=== PATIENT | female | born 1955 | race Caucasian/White ===

== ENCOUNTER 2018-09-21 08:20 | Outpatient (RCR) | payer SELFPAY | END 2018-10-03 23:59 | LOC: WC 08:20 | PROVIDERS: Family Provider Internal Medicine; PCP Internal Medicine; Visit Provider Internal Medicine | DX: Z09 Encounter for follow-up examination after completed treatment for conditions other than malignant neoplasm (principal) ==

== ENCOUNTER → 2019-09-21 13:32 | Outpatient (CLI) | payer SELFPAY ==
[2015-06-21 21:39] VITALS: BMI 34.9
--- NOTE | 2019-09-21 | CER_PTH ---
PATIENT: NAOMIE GOMEZ LOC: [facility] U#:[id number] AGE/SX: 70/F ROOM: RE09/21/[address]: Dr. Rusty Schroeder MD : [id number] BED: DIS: SPEC #: [id number] RECD: 09/21/19 14:07 STATUS: DAJA RAKESH #: [id number] CHANG: 09/21/19 00:[address]: Rusty Schroeder DEPT: SURGICAL PATHOLOGY RECD BY: George Meyer ENTERED: 09/22/19 09:13 SP TYPE: CERV OTHR DR: Dr. Rachell Weaver MD Tissues: Uterine cervix, NOS Procedures: Surgery Specimen Level IV HEADER OPERATION: Cervical biopsy PRE-OP DIAGNOSIS: Nabothian cyst TISSUE SUBMITTED: Cervical biopsy MICROSCOPIC DIAGNOSIS Cervix, biopsy: Fragments of benign ecto- and endocervical epithelium and mucoid material, clinically nabothian cyst. SJ:devika 09/22/19 MICROSCOPIC DESCRIPTION Slides are reviewed. GROSS DESCRIPTION Received in fixative is one container labeled with the patient's name and designated biopsy. The specimen consists of multiple irregular fragments of bowens mucoid tissue that in aggregate measure 2.5 x 2.5 x 0.3 cm. The specimen is totally submitted in one cassette. / SJ:rg 09/21/19 TC:5 CPT: 82311
[2019-09-25 12:52] LABS: HPV Reflexed? NOT INDICATED
== END ==
PROVIDERS: Family Provider Internal Medicine; PCP Internal Medicine; Referring Provider Obstetrics & Gynecology; Visit Provider Obstetrics & Gynecology
DX: Z12.4 Encounter for screening for malignant neoplasm of cervix (principal); N88.8 Other specified noninflammatory disorders of cervix uteri
CPT/HCPCS: 88175; 88305; G0145

== ENCOUNTER 2022-06-03 08:45 | Outpatient (RCR) | payer MEDICARE, SELFPAY ==
[2022-05-27 09:01] VITALS: BP 152/87; PULSE 75; TEMP 35.6
--- NOTE | 2022-05-27 10:11 | HP.PCM_ITS ---
History of Present Illness Date of Service: 05/27/22 Chief Complaint: Follow-up posterior right and left calf area. She also wants me look at her left lateral face. 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 She complains that she has open sores on the left lateral high cheekbone down in a keeps moving down towards the jaw. She is currently on cephalexin by her family doctor that seems to be clearing it up. Can see the outline of where it was on her face and she has 1 small open area that is superficial. The right posterior leg looks more like a insect bite with some depth and some erythema around the edge. She states that its been going on for over a month not healing well. The left leg cluster has several open areas that are very superficial and almost crusted over. Patient states she just got over a bad case of cellulitis that happens every couple of months. She states she wears compression stockings regularly but still gets the cellulitis. This last time she was hospitalized for 4 days for her cellulitis. Patient would like to get a total knee replacement with Dr. Dobbs her orthopedic surgeon wants this figured out why she keeps breaking down on her lower legs and he referred her to us. [facility] Medical History (Updated 05/27/22 @ 10:38 by Wendy Hoover NP, MOTH EXTERMINATOR-C) Diabetes type 2, controlled Home Medications hydrocodone-acetaminophen 5-325mg 5mg-325mg 1 - 2 tab PO Q4H PRN PRN Pain ##12 06/22/15 [Rx Last Taken Unknown] penicillin V potassium 500 mg tablet 500 mg PO 4X/DAY ##40 06/22/15 [Rx Last Taken Unknown] Allergy/AdvReac Type Severity Reaction Status Date / Time No Known Allergies Allergy Verified 06/21/15 21:42 Social History Smoking Status: Never smoker ROS Integumentary Integumentary: Reports non-healing lesions and sores Vital Signs Vital Signs Vital Signs: 05/27/22 09:01 Temperature 96.1 F L Temperature Source Temporal Pulse Rate 75 Blood Pressure 152/87 H Blood Pressure Mean 108 Blood Pressure Source Monitor Blood Pressure Position Semi-Fowlers Blood Pressure Location Right Arm Physical Exam Const oriented x3 General Appearance: cooperative Exam Limitations: no limitations HEENT Nose: external nose normal External Ear: external ears normal Mouth: oral and palatal mucosa normal Eyes PERRL General Eye: normal appearance of both eyes Neck full ROM General: normal visual inspection Resp normal respiratory effort Effort and Inspection: able to speak in complete sentences Auscultation: clear to auscultation bilaterally Cardio regular rate and regular rhythm Palpation: normal PMI Rate: regular rate Rhythm: regular rhythm GI Auscultation: normoactive bowel sounds Palpation: soft and no hepatosplenomegaly external exam normal Back/Spine Cervical Spine: cervical ROM normal Thoracic Spine / Upper Back: normal to inspection Lumbar Spine / Lower Back: normal to inspection Extremity normal to inspection General Extremity: normal exam except as noted Skin no rashes or lesions noted Skin Narrative: Superficial cluster of open sores on the left posterior calf. Right posterior calf has more of a hole such from a possible insect bite or spider bite. Lesion on her face open superficial closer to her jaw. Can see the outline of her infected skin previously Neuro oriented x3 Psych Appearance: grossly normal Speech: normal speech Thought Content: normal thought content Judgement: judgement good Debridement Note Debridement Note Wound debrided: Left posterior cluster nonhealing wounds possibly venous in nature Laterality: Left Type of Debridement: Excisional debridement Anesthesia Used: 5% Lidocaine Gel Depth: Down to and including healthy tissue Percentage of wound debrided: 100 Instrument Used: 3mm curette Tissue Removed: Fibrin Severity: Limited To Skin Breakdown Amount of bleeding with debridement: None Bleeding Controlled with: Compression and gauze Patient tolerated procedure: Patient tolerated procedure well Post-Debridement Measurements and Additional Note: Post-Debridement Measurements/Treatment - Nurse 1 - General Ulcer Assessment Start: 05/27/22 08:59 Freq: Status: Active Protocol: RAS Activity Type Activity Date Activity User E-sign Co-sign Detail Recorded Client Recorded Date Recorded By Document 05/27/22 09:01 RIGOBERTO [id number] 05/27/22 09:13 RIGOBERTO 05/27/22 09:01 - Today's Visit Information Type of service Initial Visit Arrival Mode Ambulatory,Cane Patient Identification Verified (Name & Yes ) Vital Signs Temperature (97.8 F-99.1 F) 96.1 F L Temperature Source Temporal Pulse Rate (60-100) 75 Pulse Location Monitor Blood Pressure (90/60-120/80) 152/87 H Blood Pressure Mean 108 Source Monitor Position Semi-Fowlers Blood Pressure Location Right Arm History Since Last Visit- (Skip if this is Patient's initial visit) Have you changed medications since your No last visit? Any new allergies or adverse reactions No Had a fall/change in ADL's that may No increase risk of falls Signs or symptoms of abuse and/or No neglect since last visit Have you been in the hospital since your No last visit? Has dressing in place as prescribed Yes Has compression in place as prescribed N/A Has offloadiing in place as prescribed N/A Experienced any changes in pain level or No management Left Footwear Regular Shoe Right Footwear Regular Shoe Pain Scale: 0-10 Numeric Is Patient Pain Free? Yes WC - Nurse 1 - General Ulcer Measurement Start: 05/27/22 08:59 Freq: Status: Active Protocol: Activity Type Activity Date Activity User E-sign Co-sign Detail Recorded Client Recorded Date Recorded By Document 05/27/22 09:01 RIGOBERTO [id number] 05/27/22 09:13 RIGOBERTO 05/27/22 09:01 Wound Center Nurse 1 #2 Left posterior leg -Current Size (cm) - Length 6 -Current Size (cm) - Width 4 -Current Size (cm) - Depth 0.1 -Total Square Cm 24 -Exudate Amt Small -Exudate Type Serosanguineous -Wound Margin Distinct, Outline Attached -Granulation Amt Large (67-100%) -Granulation Quality Red -Necrosis Amt None Present (0 %) -Texture (Neema-wound Skin Appearance) Assessed, Scarring -Moisture (Neema-wound Skin Appearance) No Abnormality, Assessed -Color (Neema-wound Skin Appearance) No Abnormality, Assessed -Temperature (Neema-wound Skin No Abnormality Appearance) (Pt Warm) -Tenderness on Palpation (Neema-wound No Skin Appearance) -Ulcer Cleansing Rinsed/ Irrigated with Saline -Foul Odor after Cleansing No -Anesthetic Used 5% Lidocaine Gel #1 Right Post leg -Current Size (cm) - Length 0.4 -Current Size (cm) - Width 0.4 -Current Size (cm) - Depth 0.1 -Total Square Cm 0.16 -Exudate Amt Small -Exudate Type Serosanguineous -Wound Margin Distinct, Outline Attached -Granulation Amt Medium (34-66%) -Granulation Quality Red -Necrosis Amt None Present (0 %) -Texture (Neema-wound Skin Appearance) Assessed, Scarring -Moisture (Neema-wound Skin Appearance) No Abnormality, Assessed -Color (Neema-wound Skin Appearance) No Abnormality, Assessed -Temperature (Neema-wound Skin No Abnormality Appearance) (Pt Warm) -Tenderness on Palpation (Neema-wound No Skin Appearance) -Ulcer Cleansing Rinsed/ Irrigated with Saline -Foul Odor after Cleansing No -Anesthetic Used 5% Lidocaine Gel Right Calf (cm) 38.5 Right Ankle (cm) 24 Left Calf (cm) 39.8 Left Ankle (cm) 23 WC - Nurse 2 - General Ulcer CM Notes Start: 05/27/22 08:59 Freq: Status: Active Protocol: Activity Type Activity Date Activity User E-sign Co-sign Detail Recorded Client Recorded Date Recorded By Document 05/27/22 09:20 MW [id number] 05/27/22 09:28 MW 05/27/22 09:20 Wound Center Nurse 2 #2 Left posterior leg -Time 09:21 -Correct Patient Yes -Correct Side, Site, Position Yes -Correct Procedure Yes -Procedure Performed Yes -Type of Procedure Debridement -Clinical Debridement Subcutaneous -Tissue Removed Subcutaneous -Post Debridement (cm) - Length 6.0 -Post Debridement (cm) - Width 4.5 -Post Debridement (cm) - Depth 0.1 -Total Square (Post) (cm) 27.00 -Area of Debridement (cm) - Length 6.0 -Area of Debridement (cm) - Width 4.5 -Total Square (Area) (cm) 27.00 -Tunneling No -Undermining/Tunneling No -Circular Undermining No -Wound/Ulcer Outcome Not Healed -Ulcer Cleansing Rinsed/ Irrigated with Saline -Foul Odor after Cleansing No -Bioengineered Tissue No -Bleeding Controlled with Pressure -Treatment Response Procedure Tolerated Well -Offloading No -Debridement - Subq, 1st 20sq cm Yes -Debridement, SubQ, ea addt'l 20sq cm 1 or part thereof #1 Right Post leg -Time 09:21 -Correct Patient Yes -Correct Side, Site, Position Yes -Correct Procedure Yes -Procedure Performed Yes -Type of Procedure Debridement -Clinical Debridement Subcutaneous -Tissue Removed Subcutaneous -Post Debridement (cm) - Length 0.7 -Post Debridement (cm) - Width 0.4 -Post Debridement (cm) - Depth 0.2 -Total Square (Post) (cm) 0.28 -Area of Debridement (cm) - Length 0.7 -Area of Debridement (cm) - Width 0.4 -Total Square (Area) (cm) 0.28 -Tunneling No -Undermining/Tunneling No -Circular Undermining No -Wound/Ulcer Outcome Not Healed -Ulcer Cleansing Rinsed/ Irrigated with Saline -Foul Odor after Cleansing No -Bioengineered Tissue No -Bleeding Controlled with Pressure -Treatment Response Procedure Tolerated Well -Offloading No -Debridement - Subq, 1st 20sq cm No Pain Scale: 0-10 Numeric Is Patient Pain Free? Yes - Nurse 3 - General Ulcer D/C NN Start: 05/27/22 08:59 Freq: Status: Active Protocol: Activity Type Activity Date Activity User E-sign Co-sign Detail Recorded Client Recorded Date Recorded By Document 05/27/22 09:37 [id number] 05/27/22 09:38 TRENT 05/27/22 09:37 Wound Care Nurse 3 #2 Left posterior leg -Primary Dressing Applied Aquacel AG 4x4, NonAdherent Contact Layer -Primary Dressing Covered/Secured with Dry Gauze,Dry Gauze & Roll Gauze,Secured with Tape -Aquacel AG 4x4 1 #1 Right Post leg -Primary Dressing Covered/Secured with Dry Gauze, Secured with Tape Pain Scale: 0-10 Numeric Is Patient Pain Free? Yes - Visit Discharge Discharge Condition Stable Ambulatory Status Ambulatory,Cane Transportation Private Auto Additional Wound Wound debrided: Right posterior calf from possibly a insect or spider bite Laterality: Right Type of Debridement: Excisional debridement Anesthesia Used: 5% Lidocaine Gel Depth: in the subcutaneous layer Percentage of wound debrided: 100 Instrument Used: 3mm curette Tissue Removed: Fibrin and devitalized tissue Severity: Fat Layer Exposed Amount of bleeding with debridement: Mild Bleeding Controlled with: Compression and gauze Patient tolerated procedure: Patient tolerated procedure well Assessment/Plan Assessment/Plan (1) Infected insect bite of lower extremity: CODE(S): S80.869A - Insect bite (nonvenomous), unspecified lower leg, initial encounter; L08.9 - Local infection of the skin and subcutaneous tissue, unspecified; W57.XXXA - Bitten or stung by nonvenomous insect and other nonvenomous arthropods, initial encounter (2) Venous insufficiency of both lower extremities: CODE(S): I87.2 - Venous insufficiency (chronic) (peripheral) PLAN: Wash areas on both legs with antibacterial soap apply Aquacel extra to all areas cover with Adaptic and gauze and tape every day Finish antibiotic therapy with the cephalexin Follow-up in 1 week
[2022-06-03 08:49] VITALS: BP 139/71; PULSE 75; RESP 16; TEMP 35.6
--- NOTE | 2022-06-03 11:10 | PCM.WC.PN ---
History of Present Illness Date of Service: 06/03/22 Chief Complaint: Follow-up posterior right and left calf area. She also wants me look at her left lateral face. 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 She complains that she has open sores on the left lateral high cheekbone down in a keeps moving down towards the jaw. She is currently on cephalexin by her family doctor that seems to be clearing it up. Can see the outline of where it was on her face and she has 1 small open area that is superficial. The right posterior leg looks more like a insect bite with some depth and some erythema around the edge. She states that its been going on for over a month not healing well. The left leg cluster has several open areas that are very superficial and almost crusted over. Patient states she just got over a bad case of cellulitis that happens every couple of months. She states she wears compression stockings regularly but still gets the cellulitis. This last time she was hospitalized for 4 days for her cellulitis. Patient would like to get a total knee replacement with Dr. Dobbs her orthopedic surgeon wants this figured out why she keeps breaking down on her lower legs and he referred her to us. Progress of Wound: The left cluster lower leg wounds are very superficial and should be healed within a week. No sign of infection or redness. Right posterior leg the depth is gone its more superficial now is healing very well again and should probably gone in another week or so Subjective Subjective Patient has been taking off her dressings at night and we have told her not to Objective Data Objective Data No sign of infection healing well we will continue with current treatment of Aquacel extra and Adaptic Vital Signs: Vital Signs Temp Pulse Resp BP O2 Del Method 96.1 F L 75 16 139/71 H Room Air 06/03/22 08:49 06/03/22 08:49 06/03/22 08:49 06/03/22 08:49 06/03/22 08:49 Oxygen Delivery Method Room Air Physical Exam Const oriented x3 General Appearance: cooperative Exam Limitations: no limitations HEENT Nose: external nose normal External Ear: external ears normal Mouth: oral and palatal mucosa normal Eyes PERRL General Eye: normal appearance of both eyes Neck full ROM General: normal visual inspection Resp normal respiratory effort Effort and Inspection: able to speak in complete sentences Auscultation: clear to auscultation bilaterally Cardio regular rate and regular rhythm Palpation: normal PMI Rate: regular rate Rhythm: regular rhythm GI Auscultation: normoactive bowel sounds Palpation: soft and no hepatosplenomegaly external exam normal Back/Spine Cervical Spine: cervical ROM normal Thoracic Spine / Upper Back: normal to inspection Lumbar Spine / Lower Back: normal to inspection Extremity normal to inspection General Extremity: normal exam except as noted Skin no rashes or lesions noted Skin Narrative: Superficial cluster of open sores on the left posterior calf. Right posterior calf has more of a hole such from a possible insect bite or spider bite. Lesion on her face open superficial closer to her jaw. Can see the outline of her infected skin previously Neuro oriented x3 Psych Appearance: grossly normal Speech: normal speech Thought Content: normal thought content Judgement: judgement good Debridement Note Debridement Note Wound debrided: Left posterior wounds lower extremity cluster Laterality: Left Type of Debridement: Excisional debridement Anesthesia Used: 5% Lidocaine Gel Depth: Down to and including healthy tissue Percentage of wound debrided: 100 Instrument Used: 5mm curette Tissue Removed: Fibrin Severity: Limited To Skin Breakdown Amount of bleeding with debridement: None Patient tolerated procedure: Patient tolerated procedure well Post-Debridement Measurements and Additional Note: Post-Debridement Measurements/Treatment - Nurse 1 - General Ulcer Assessment Start: 05/27/22 08:59 Freq: Status: Active Protocol: [email or web address].JOSET Activity Type Activity Date Activity User E-sign Co-sign Detail Recorded Client Recorded Date Recorded By Document 05/27/22 09:01 UT [id number] 05/27/22 09:13 UT Document 06/03/22 08:49 [facility] [id number] 06/03/22 08:52 [facility] 05/27/22 06/03/22 09:01 08:49 - Today's Visit Information Type of service Initial Visit Follow-up Visit (Physician/BROTHEL KEEPER ) Arrival Mode Ambulatory,Cane Ambulatory Transfer Assistance None Patient Identification Verified (Name & Yes Yes ) Patient Requires Transmission-Based No Precautions Vital Signs Temperature (97.8 F-99.1 F) 96.1 F L 96.1 F L Temperature Source Temporal Temporal Pulse Rate (60-100) 75 75 Pulse Location Monitor Monitor Respiratory Rate (12-18) 16 Respiratory rate source Observation Oxygen Delivery Method Room Air Blood Pressure (90/60-120/80) 152/87 H 139/71 H Blood Pressure Mean (mm Hg) 108 93 Source Monitor Monitor Position Semi-Fowlers Sitting Blood Pressure Location Right Arm Right Arm History Since Last Visit- (Skip if this is Patient's initial visit) Have you changed medications since your No No last visit? Any new allergies or adverse reactions No No Had a fall/change in ADL's that may No No increase risk of falls Signs or symptoms of abuse and/or No No neglect since last visit Have you been in the hospital since your No No last visit? Has dressing in place as prescribed Yes No Has compression in place as prescribed N/A N/A Has offloadiing in place as prescribed N/A N/A Experienced any changes in pain level or No No management Left Footwear Regular Shoe Regular Shoe Right Footwear Regular Shoe Regular Shoe Pain Scale: 0-10 Numeric Is Patient Pain Free? Yes Yes WC - Nurse 1 - General Ulcer Measurement Start: 05/27/22 08:59 Freq: Status: Active Protocol: Activity Type Activity Date Activity User E-sign Co-sign Detail Recorded Client Recorded Date Recorded By Document 05/27/22 09:01 UT [id number] 05/27/22 09:13 AK Document 06/03/22 08:49 [facility] [id number] 06/03/22 08:52 [facility] 05/27/22 06/03/22 09:01 08:49 Wound Center Nurse 1 #2 Left posterior leg -Combined with other wound No -Current Size (cm) - Length 6 6.1 -Current Size (cm) - Width 4 3 -Current Size (cm) - Depth 0.1 0.1 -Total Square Cm 24 18.3 -Date of Last Picture (Recall this 06/03/22 field) -Photo Taken Yes -Epithelialization Small 1-33% -Tunneling No -Undermining/Tunneling No -Circular Undermining No -Exudate Amt Small None Present -Exudate Type Serosanguineous -Wound Margin Distinct, Distinct, Outline Outline Attached Attached -Granulation Amt Large (67-100%) Large (67-100%) -Granulation Quality Red Red -Slough/Fibrin No -Necrosis Amt None Present (0 None Present (0 %) %) -Texture (Neema-wound Skin Appearance) Assessed, Assessed, Scarring Scarring -Moisture (Neema-wound Skin Appearance) No Abnormality, Assessed Assessed -Color (Neema-wound Skin Appearance) No Abnormality, Assessed, Assessed Erythema -Temperature (Neema-wound Skin No Abnormality No Abnormality Appearance) (Pt Warm) (Pt Warm) -Tenderness on Palpation (Neema-wound No No Skin Appearance) -Ulcer Cleansing Rinsed/ Rinsed/ Irrigated with Irrigated with Saline Saline -Foul Odor after Cleansing No No -Anesthetic Used 5% Lidocaine 4% Lidocaine Gel Solution #1 Right Post leg -Combined with other wound No -Current Size (cm) - Length 0.4 0.3 -Current Size (cm) - Width 0.4 0.2 -Current Size (cm) - Depth 0.1 0.1 -Total Square Cm 0.16 0.06 -Date of Last Picture (Recall this 06/03/22 field) -Photo Taken Yes -Epithelialization Small 1-33% -Tunneling No -Undermining/Tunneling No -Circular Undermining No -Exudate Amt Small None Present -Exudate Type Serosanguineous -Wound Margin Distinct, Outline Attached -Granulation Amt Medium (34-66%) Large (67-100%) -Granulation Quality Red Red -Slough/Fibrin No -Necrosis Amt None Present (0 None Present (0 %) %) -Texture (Neema-wound Skin Appearance) Assessed, Assessed, Scarring Scarring -Moisture (Neema-wound Skin Appearance) No Abnormality, Assessed Assessed -Color (Neema-wound Skin Appearance) No Abnormality, Assessed Assessed -Temperature (Neema-wound Skin No Abnormality No Abnormality Appearance) (Pt Warm) (Pt Warm) -Tenderness on Palpation (Neema-wound No No Skin Appearance) -Ulcer Cleansing Rinsed/ Rinsed/ Irrigated with Irrigated with Saline Saline -Foul Odor after Cleansing No No -Anesthetic Used 5% Lidocaine 4% Lidocaine Gel Solution Right Calf (cm) 38.5 Right Ankle (cm) 24 Left Calf (cm) 39.8 Left Ankle (cm) 23 WC - Nurse 2 - General Ulcer CM Notes Start: 05/27/22 08:59 Freq: Status: Active Protocol: Activity Type Activity Date Activity User E-sign Co-sign Detail Recorded Client Recorded Date Recorded By Document 05/27/22 09:20 MW [id number] 05/27/22 09:28 MW Document 06/03/22 09:00 MW [id number] 06/03/22 09:03 MW 05/27/22 06/03/22 09:20 09:00 Wound Center Nurse 2 #2 Left posterior leg -Time : 09:00 -Correct Patient Yes Yes -Correct Side, Site, Position Yes Yes -Correct Procedure Yes Yes -Procedure Performed Yes Yes -Type of Procedure Debridement Debridement -Clinical Debridement Subcutaneous Subcutaneous -Tissue Removed Subcutaneous Subcutaneous -Post Debridement (cm) - Length 6.0 6.1 -Post Debridement (cm) - Width 4.5 4.5 -Post Debridement (cm) - Depth 0.1 0.1 -Total Square (Post) (cm) 27.00 27.45 -Area of Debridement (cm) - Length 6.0 6.1 -Area of Debridement (cm) - Width 4.5 4.5 -Total Square (Area) (cm) 27.00 27.45 -Tunneling No No -Undermining/Tunneling No No -Circular Undermining No No -Wound/Ulcer Outcome Not Healed Not Healed -Ulcer Cleansing Rinsed/ Rinsed/ Irrigated with Irrigated with Saline Saline -Foul Odor after Cleansing No No -Bioengineered Tissue No No -Bleeding Controlled with Pressure Pressure -Treatment Response Procedure Procedure Tolerated Well Tolerated Well -Offloading No No -Debridement - Subq, 1st 20sq cm Yes Yes -Debridement, SubQ, ea addt'l 20sq cm 1 1 or part thereof #1 Right Post leg -Time 09: 09:01 -Correct Patient Yes Yes -Correct Side, Site, Position Yes Yes -Correct Procedure Yes Yes -Procedure Performed Yes Yes -Type of Procedure Debridement Debridement -Clinical Debridement Subcutaneous Subcutaneous -Tissue Removed Subcutaneous Subcutaneous -Post Debridement (cm) - Length 0.7 0.3 -Post Debridement (cm) - Width 0.4 0.3 -Post Debridement (cm) - Depth 0.2 0.1 -Total Square (Post) (cm) 0.28 0.09 -Area of Debridement (cm) - Length 0.7 0.3 -Area of Debridement (cm) - Width 0.4 0.3 -Total Square (Area) (cm) 0.28 0.09 -Tunneling No No -Undermining/Tunneling No No -Circular Undermining No No -Wound/Ulcer Outcome Not Healed Not Healed -Ulcer Cleansing Rinsed/ Rinsed/ Irrigated with Irrigated with Saline Saline -Foul Odor after Cleansing No No -Bioengineered Tissue No No -Bleeding Controlled with Pressure Pressure -Treatment Response Procedure Procedure Tolerated Well Tolerated Well -Offloading No No -Debridement - Subq, 1st 20sq cm No No Pain Scale: 0-10 Numeric Is Patient Pain Free? Yes Yes WC - Nurse 3 - General Ulcer D/C NN Start: 05/27/22 08:59 Freq: Status: Active Protocol: Activity Type Activity Date Activity User E-sign Co-sign Detail Recorded Client Recorded Date Recorded By Document 05/27/22 09:37 KR [id number] 05/27/22 09:38 KR Document 06/03/22 09:04 MW [id number] 06/03/22 09:06 MW 05/27/22 06/03/22 09:37 09:04 Wound Care Nurse 3 #2 Left posterior leg -Ulcer Cleansing Rinsed/ Irrigated with Saline -Foul Odor after Cleansing No -Negative Pressure Wound Therapy N/A -Primary Dressing Applied Aquacel AG 4x4, NonAdherent NonAdherent Contact Layer Contact Layer -Other Dressing aquacel extra -Primary Dressing Covered/Secured with Dry Gauze,Dry Dry Gauze & Gauze & Roll Roll Gauze, Gauze,Secured Secured with with Tape Tape -Aquacel AG 4x4 1 #1 Right Post leg -Ulcer Cleansing Rinsed/ Irrigated with Saline -Foul Odor after Cleansing No -Negative Pressure Wound Therapy N/A -Primary Dressing Applied NonAdherent Contact Layer -Other Dressing aquacel extra -Primary Dressing Covered/Secured with Dry Gauze, Dry Gauze & Secured with Roll Gauze, Tape Secured with Tape Treatment Response Procedure Tolerated Well Pain Scale: 0-10 Numeric Is Patient Pain Free? Yes Yes Teaching: Wound Center Dressing Your Wound -Person Taught Patient -Teaching Method Discussion, Demonstration -Response to teaching Verbalize understanding WC - Visit Discharge Discharge Condition Stable Stable Ambulatory Status Ambulatory,Cane Ambulatory Transportation Private Auto Private Auto Accompanied by self Medication Reconcilliation completed & No provided to patient/care provider Clinical Summary of Care Provided Yes Additional Wound Wound debrided: Right posterior calf wound Laterality: Right Type of Debridement: Excisional debridement Anesthesia Used: 5% Lidocaine Gel Depth: Down to and including healthy tissue Percentage of wound debrided: 100 Instrument Used: 5mm curette Tissue Removed: Fibrin Severity: Limited To Skin Breakdown Amount of bleeding with debridement: None Patient tolerated procedure: Patient tolerated procedure well Assessment/Plan Assessment/Plan (1) Infected insect bite of lower extremity: CODE(S): S80.869A - Insect bite (nonvenomous), unspecified lower leg, initial encounter; L08.9 - Local infection of the skin and subcutaneous tissue, unspecified; W57.XXXA - Bitten or stung by nonvenomous insect and other nonvenomous arthropods, initial encounter (2) Venous insufficiency of both lower extremities: CODE(S): I87.2 - Venous insufficiency (chronic) (peripheral) PLAN: Wash areas on both legs with antibacterial soap apply Aquacel extra to all areas cover with Adaptic and gauze and tape every day Patient is scheduled for venous and brachial study in July Follow-up in 1 week
== END 2022-06-03 23:59 | disposition home or self-care (01) ==
LOC: WC 08:45
PROVIDERS: PCP Internal Medicine; Visit Provider Nurse Practitioner
DX: E11.59 Type 2 diabetes mellitus with other circulatory complications (principal); E11.622 Type 2 diabetes mellitus with other skin ulcer; L97.821 Non-pressure chronic ulcer of other part of left lower leg limited to breakdown of skin; L97.211 Non-pressure chronic ulcer of right calf limited to breakdown of skin; L08.9 Local infection of the skin and subcutaneous tissue, unspecified; I87.2 Venous insufficiency (chronic) (peripheral); S80.869A Insect bite (nonvenomous), unspecified lower leg, initial encounter; W57.XXXA Bitten or stung by nonvenomous insect and other nonvenomous arthropods, initial encounter; L01.00 Impetigo, unspecified
CPT/HCPCS: 11042; 11045; 99203; G0463

== ENCOUNTER 2022-07-01 08:45 | Outpatient (RCR) | payer MEDICARE, SELFPAY ==
[2022-06-04 00:47] VITALS: BP 139/71; PULSE 75; RESP 16; TEMP 35.6
[2022-06-10 08:49] VITALS: BP 130/62; PULSE 64; TEMP 36.1
--- NOTE | 2022-06-10 11:54 | PN.PCM_ITS ---
History of Present Illness Date of Service: 06/10/22 Chief Complaint: Follow-up posterior right and left calf area. She also wants me look at her left lateral face. 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 She complains that she has open sores on the left lateral high cheekbone down in a keeps moving down towards the jaw. She is currently on cephalexin by her family doctor that seems to be clearing it up. Can see the outline of where it was on her face and she has 1 small open area that is superficial. The right posterior leg looks more like a insect bite with some depth and some erythema around the edge. She states that its been going on for over a month not healing well. The left leg cluster has several open areas that are very superficial and almost crusted over. Patient states she just got over a bad case of cellulitis that happens every couple of months. She states she wears compression stockings regularly but still gets the cellulitis. This last time she was hospitalized for 4 days for her cellulitis. Patient would like to get a total knee replacement with Dr. Dobbs her orthopedic surgeon wants this figured out why she keeps breaking down on her lower legs and he referred her to us. Progress of Wound: Okay the left lateral face still has an outline of where it was I still want her to go to and we will refer her to dermatology in [place] for biopsy. I think she may have a form of cancer on her skin. The left lateral lower leg is pretty much healed she has like 2 little dots that she still wants to come back for next week we will continue using the Aquacel extra with Adaptic over top. The right posterior leg also is almost healed there is no depth its surface now and closing well on the Adaptic. Patient is scheduled for her arterial brachial studies and venous studies July 19. Subjective Subjective Patient is very happy with progress of wounds Objective Data Objective Data No sign of infection wounds are much smaller and healing very well Vital Signs: Vital Signs Temp Pulse Resp BP 96.9 F L 64 16 130/62 H 06/10/22 08:49 06/10/22 08:49 06/04/22 00:47 06/10/22 08:49 Lab / Micro Data Attestation: I reviewed the patient's lab results. Physical Exam Const oriented x3 General Appearance: cooperative Exam Limitations: no limitations HEENT Nose: external nose normal External Ear: external ears normal Mouth: oral and palatal mucosa normal Eyes PERRL General Eye: normal appearance of both eyes Neck full ROM General: normal visual inspection Resp normal respiratory effort Effort and Inspection: able to speak in complete sentences Auscultation: clear to auscultation bilaterally Cardio regular rate and regular rhythm Palpation: normal PMI Rate: regular rate Rhythm: regular rhythm GI Auscultation: normoactive bowel sounds Palpation: soft and no hepatosplenomegaly external exam normal Back/Spine Cervical Spine: cervical ROM normal Thoracic Spine / Upper Back: normal to inspection Lumbar Spine / Lower Back: normal to inspection Extremity normal to inspection General Extremity: normal exam except as noted Skin no rashes or lesions noted Skin Narrative: Superficial cluster of open sores on the left posterior calf. Right posterior calf has more of a hole such from a possible insect bite or spider bite. Lesion on her face open superficial closer to her jaw. Can see the outline of her infected skin previously Neuro oriented x3 Psych Appearance: grossly normal Speech: normal speech Thought Content: normal thought content Judgement: judgement good Debridement Note Debridement Note Wound debrided: Left lower leg ulcers Laterality: Left Type of Debridement: Excisional debridement Anesthesia Used: 5% Lidocaine Gel Depth: Down to and including healthy tissue Percentage of wound debrided: 100 Instrument Used: 7mm curette Tissue Removed: Devitalized tissue and fibrin Severity: Fat Layer Exposed Amount of bleeding with debridement: Mild Bleeding Controlled with: Pressure Patient tolerated procedure: Patient tolerated procedure well Post-Debridement Measurements and Additional Note: Post-Debridement Measurements/Treatment - Nurse 1 - General Ulcer Assessment Start: 06/10/22 08:49 Freq: Status: Active Protocol: WC.LOWEXT Activity Type Activity Date Activity User E-sign Co-sign Detail Recorded Client Recorded Date Recorded By Document 06/10/22 08:49 KR [id number] 06/10/22 08:53 KR 06/10/22 08:49 - Today's Visit Information Type of service Follow-up Visit (Physician/[employer] ) Arrival Mode Ambulatory,Cane Patient Identification Verified (Name & Yes ) Vital Signs Temperature (97.8 F-99.1 F) 96.9 F L Temperature Source Temporal Pulse Rate (60-100) 64 Pulse Location Monitor Blood Pressure (90/60-120/80) 130/62 H Blood Pressure Mean (mm Hg) 84 Source Monitor Position Semi-Fowlers Blood Pressure Location Right Arm History Since Last Visit- (Skip if this is Patient's initial visit) Have you changed medications since your No last visit? Any new allergies or adverse reactions No Had a fall/change in ADL's that may No increase risk of falls Signs or symptoms of abuse and/or No neglect since last visit Have you been in the hospital since your No last visit? Has dressing in place as prescribed Yes Has compression in place as prescribed N/A Has offloadiing in place as prescribed N/A Experienced any changes in pain level or No management Left Footwear Regular Shoe Right Footwear Regular Shoe Pain Scale: 0-10 Numeric Is Patient Pain Free? Yes WC - Nurse 1 - General Ulcer Measurement Start: 06/10/22 08:49 Freq: Status: Active Protocol: Activity Type Activity Date Activity User E-sign Co-sign Detail Recorded Client Recorded Date Recorded By Document 06/10/22 08:49 TRENT [id number] 06/10/22 08:53 TRENT 06/10/22 08:49 Wound Center Nurse 1 #2 Left posterior leg -Current Size (cm) - Length 5.5 -Current Size (cm) - Width 2 -Current Size (cm) - Depth 0.1 -Total Square Cm 11.0 -Exudate Amt Small -Exudate Type Serosanguineous -Wound Margin Distinct, Outline Attached -Granulation Amt None Present (0 %) -Granulation Quality Anselmo -Necrosis Amt None Present (0 %) -Texture (Neema-wound Skin Appearance) Assessed, Scarring -Moisture (Neema-wound Skin Appearance) No Abnormality, Assessed -Color (Neema-wound Skin Appearance) No Abnormality, Assessed -Temperature (Neema-wound Skin No Abnormality Appearance) (Pt Warm) -Tenderness on Palpation (Neema-wound No Skin Appearance) -Ulcer Cleansing Rinsed/ Irrigated with Saline -Foul Odor after Cleansing No -Anesthetic Used 5% Lidocaine Gel #1 Right Post leg -Current Size (cm) - Length 0.2 -Current Size (cm) - Width 0.2 -Current Size (cm) - Depth 0.1 -Total Square Cm 0.04 -Exudate Amt None Present -Wound Margin Distinct, Outline Attached -Granulation Amt Small (1-33%) -Granulation Quality Anselmo -Necrosis Amt None Present (0 %) -Texture (Neema-wound Skin Appearance) Assessed, Scarring -Moisture (Neema-wound Skin Appearance) No Abnormality, Assessed -Color (Neema-wound Skin Appearance) No Abnormality, Assessed -Temperature (Neema-wound Skin No Abnormality Appearance) (Pt Warm) -Tenderness on Palpation (Neema-wound No Skin Appearance) -Ulcer Cleansing Rinsed/ Irrigated with Saline -Foul Odor after Cleansing No -Anesthetic Used 5% Lidocaine Gel WC - Nurse 2 - General Ulcer CM Notes Start: 06/10/22 08:49 Freq: Status: Active Protocol: Activity Type Activity Date Activity User E-sign Co-sign Detail Recorded Client Recorded Date Recorded By Document 06/10/22 08:58 MW [id number] 06/10/22 09:04 MW 06/10/22 08:58 Wound Center Nurse 2 #2 Left posterior leg -Time 08:59 -Correct Patient Yes -Correct Side, Site, Position Yes -Correct Procedure Yes -Procedure Performed Yes -Type of Procedure Debridement -Clinical Debridement Subcutaneous -Tissue Removed Subcutaneous -Post Debridement (cm) - Length 0.2 -Post Debridement (cm) - Width 3.0 -Post Debridement (cm) - Depth 0.1 -Total Square (Post) (cm) 0.60 -Area of Debridement (cm) - Length 0.2 -Area of Debridement (cm) - Width 3.0 -Total Square (Area) (cm) 0.60 -Tunneling No -Undermining/Tunneling No -Circular Undermining No -Wound/Ulcer Outcome Not Healed -Ulcer Cleansing Rinsed/ Irrigated with Saline -Foul Odor after Cleansing No -Bioengineered Tissue No -Bleeding Controlled with Pressure -Treatment Response Procedure Tolerated Well -Offloading No -Debridement - Subq, 1st 20sq cm Yes #1 Right Post leg -Time 09:02 -Correct Patient Yes -Correct Side, Site, Position Yes -Correct Procedure Yes -Procedure Performed Yes -Type of Procedure Debridement -Clinical Debridement Subcutaneous -Tissue Removed Subcutaneous -Post Debridement (cm) - Length 0.3 -Post Debridement (cm) - Width 0.2 -Post Debridement (cm) - Depth 0.1 -Total Square (Post) (cm) 0.06 -Area of Debridement (cm) - Length 0.3 -Area of Debridement (cm) - Width 0.2 -Total Square (Area) (cm) 0.06 -Tunneling No -Undermining/Tunneling No -Circular Undermining No -Wound/Ulcer Outcome Not Healed -Ulcer Cleansing Rinsed/ Irrigated with Saline -Foul Odor after Cleansing No -Bioengineered Tissue No -Bleeding Controlled with Pressure -Treatment Response Procedure Tolerated Well -Offloading No -Debridement - Subq, 1st 20sq cm No Pain Scale: 0-10 Numeric Is Patient Pain Free? Yes - Nurse 3 - General Ulcer D/C NN Start: 06/10/22 08:49 Freq: Status: Active Protocol: Activity Type Activity Date Activity User E-sign Co-sign Detail Recorded Client Recorded Date Recorded By Document 06/10/22 09:25 RIGOBERTO [id number] 06/10/22 09:27 RIGOBERTO 06/10/22 09:25 Wound Care Nurse 3 #2 Left posterior leg -Ulcer Cleansing Rinsed/ Irrigated with Saline -Foul Odor after Cleansing No -Negative Pressure Wound Therapy N/A -Primary Dressing Applied Aquacel Extra -Primary Dressing Covered/Secured with Dry Gauze & Roll Gauze, Secured with Tape -Aquacel Extra 1 #1 Right Post leg -Ulcer Cleansing Rinsed/ Irrigated with Saline -Foul Odor after Cleansing No -Negative Pressure Wound Therapy N/A -Primary Dressing Applied Aquacel Extra -Primary Dressing Covered/Secured with Dry Gauze & Roll Gauze, Secured with Tape -Aquacel Extra 0 Pain Scale: 0-10 Numeric Is Patient Pain Free? Yes - Visit Discharge Discharge Condition Stable Ambulatory Status Ambulatory Transportation Private Auto Medication Reconcilliation completed & Yes provided to patient/care provider Clinical Summary of Care Provided Yes Additional Wound Wound debrided: Right lower posterior ulcer Laterality: Right Type of Debridement: Excisional debridement Anesthesia Used: 5% Lidocaine Gel Depth: Down to and including healthy tissue Percentage of wound debrided: 100 Instrument Used: 7mm curette Tissue Removed: Fibrin Severity: Limited To Skin Breakdown Amount of bleeding with debridement: None Patient tolerated procedure: Patient tolerated procedure well Assessment/Plan Assessment/Plan (1) Infected insect bite of lower extremity: CODE(S): S80.869A - Insect bite (nonvenomous), unspecified lower leg, initial encounter; L08.9 - Local infection of the skin and subcutaneous tissue, unspecified; W57.XXXA - Bitten or stung by nonvenomous insect and other nonvenomous arthropods, initial encounter (2) Venous insufficiency of both lower extremities: CODE(S): I87.2 - Venous insufficiency (chronic) (peripheral) PLAN: Wash areas on both legs with antibacterial soap apply Aquacel extra to all areas cover with Adaptic and gauze and tape every day Patient is scheduled for venous and brachial study in July Follow-up in 1 week
[2022-06-17 08:50] VITALS: BP 130/64; PULSE 79; RESP 20; TEMP 35.7
--- NOTE | 2022-06-17 12:12 | PCM.WC.PN ---
History of Present Illness Date of Service: 06/17/22 Chief Complaint: Follow-up posterior right and left calf area. She also wants me look at her left lateral face. 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 She complains that she has open sores on the left lateral high cheekbone down in a keeps moving down towards the jaw. She is currently on cephalexin by her family doctor that seems to be clearing it up. Can see the outline of where it was on her face and she has 1 small open area that is superficial. The right posterior leg looks more like a insect bite with some depth and some erythema around the edge. She states that its been going on for over a month not healing well. The left leg cluster has several open areas that are very superficial and almost crusted over. Patient states she just got over a bad case of cellulitis that happens every couple of months. She states she wears compression stockings regularly but still gets the cellulitis. This last time she was hospitalized for 4 days for her cellulitis. Patient would like to get a total knee replacement with Dr. Dobbs her orthopedic surgeon wants this figured out why she keeps breaking down on her lower legs and he referred her to us. Progress of Wound: Okay the left lateral face still has an outline of where it was I still want her to go to and we will refer her to dermatology in [place] for biopsy. I think she may have a form of cancer on her skin. The left lateral lower leg is pretty much healed she has like 2 little dots that she still wants to come back for next week we will continue using the Aquacel extra with Adaptic over top. The right posterior leg is healed. Patient is scheduled for her arterial brachial studies and venous studies July 19 and she is scheduled to see dermatology on 21 July.. Subjective Subjective Patient is pleased with outcomes Objective Data Objective Data No sign of infection healing well right leg that was the deeper of all the wounds is completely closed left leg reopened another one small underneath the previous. Obtain cultures will recheck to make sure she is not growing something. Vital Signs: Vital Signs Temp Pulse Resp BP 96.2 F L 79 20 H 130/64 H 06/17/22 08:50 06/17/22 08:50 06/17/22 08:50 06/17/22 08:50 Physical Exam Const oriented x3 General Appearance: cooperative Exam Limitations: no limitations HEENT Nose: external nose normal External Ear: external ears normal Mouth: oral and palatal mucosa normal Eyes PERRL General Eye: normal appearance of both eyes Neck full ROM General: normal visual inspection Resp normal respiratory effort Effort and Inspection: able to speak in complete sentences Auscultation: clear to auscultation bilaterally Cardio regular rate and regular rhythm Palpation: normal PMI Rate: regular rate Rhythm: regular rhythm GI Auscultation: normoactive bowel sounds Palpation: soft and no hepatosplenomegaly external exam normal Back/Spine Cervical Spine: cervical ROM normal Thoracic Spine / Upper Back: normal to inspection Lumbar Spine / Lower Back: normal to inspection Extremity normal to inspection General Extremity: normal exam except as noted Skin no rashes or lesions noted Skin Narrative: Superficial cluster of open sores on the left posterior calf. Right posterior calf has more of a hole such from a possible insect bite or spider bite. Lesion on her face open superficial closer to her jaw. Can see the outline of her infected skin previously Neuro oriented x3 Psych Appearance: grossly normal Speech: normal speech Thought Content: normal thought content Judgement: judgement good Debridement Note Debridement Note Wound debrided: Left posterior clusters from venous insufficiency Laterality: Left Type of Debridement: Excisional debridement Anesthesia Used: 5% Lidocaine Gel Depth: Down to and including healthy tissue Percentage of wound debrided: 100 Instrument Used: 7mm curette Tissue Removed: Fibrin Severity: Limited To Skin Breakdown Amount of bleeding with debridement: Mild Bleeding Controlled with: Pressure Patient tolerated procedure: Patient tolerated procedure well Post-Debridement Measurements and Additional Note: Post-Debridement Measurements/Treatment - Nurse 1 - General Ulcer Assessment Start: 06/10/22 08:49 Freq: Status: Active Protocol: RAS Activity Type Activity Date Activity User E-sign Co-sign Detail Recorded Client Recorded Date Recorded By Document 06/10/22 08:49 KR [id number] 06/10/22 08:53 KR Document 06/17/22 08:50 DL [id number] 06/17/22 08:56 DL 06/10/22 06/17/22 08:49 08:50 - Today's Visit Information Type of service Follow-up Visit Follow-up Visit (Physician/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 PREVENTION 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 (Physician/LOSS PREVENTION AUDITOR ) ) Arrival Mode Ambulatory,Cane Ambulatory Transfer Assistance None Patient Identification Verified (Name & Yes Yes ) Patient Requires Transmission-Based No Precautions Finger Stick Blood Sugar(mg/dl) (if not checked indicated): Blood Sugar Stated by Patient Vital Signs Temperature (97.8 F-99.1 F) 96.9 F L 96.2 F L Temperature Source Temporal Temporal Pulse Rate (60-100) 64 79 Pulse Location Monitor Monitor Respiratory Rate (12-18) 20 H Respiratory rate source Observation Blood Pressure (90/60-120/80) 130/62 H 130/64 H Blood Pressure Mean (mm Hg) 84 86 Source Monitor Monitor Position Semi-Fowlers Blood Pressure Location Right Arm History Since Last Visit- (Skip if this is Patient's initial visit) Have you changed medications since your No No last visit? Any new allergies or adverse reactions No No Had a fall/change in ADL's that may No No increase risk of falls Signs or symptoms of abuse and/or No No neglect since last visit Have you been in the hospital since your No No last visit? Has dressing in place as prescribed Yes Yes Has compression in place as prescribed N/A Yes Has offloadiing in place as prescribed N/A N/A Experienced any changes in pain level or No No management Left Footwear Regular Shoe Diabetic Shoe Right Footwear Regular Shoe Diabetic Shoe Pain Scale: 0-10 Numeric Is Patient Pain Free? Yes Yes WC - Nurse 1 - General Ulcer Measurement Start: 06/10/22 08:49 Freq: Status: Active Protocol: Activity Type Activity Date Activity User E-sign Co-sign Detail Recorded Client Recorded Date Recorded By Document 06/10/22 08:49 KR [id number] 06/10/22 08:53 KR Document 06/17/22 08:50 DL [id number] 06/17/22 08:56 DL 06/10/22 06/17/22 08:49 08:50 Wound Center Nurse 1 #1 Right Post leg -Current Size (cm) - Length 0.2 0.1 -Current Size (cm) - Width 0.2 0.1 -Current Size (cm) - Depth 0.1 0.1 -Total Square Cm 0.04 0.01 -Photo Taken No -Exudate Amt None Present None Present -Wound Margin Distinct, Flat & Intact Outline Attached -Granulation Amt Small (1-33%) Small (1-33%) -Granulation Quality [place] -Necrosis Amt None Present (0 None Present (0 %) %) -Structure Exposed N/A -Texture (Neema-wound Skin Appearance) Assessed, Scarring Scarring -Moisture (Neema-wound Skin Appearance) No Abnormality, No Abnormality Assessed -Color (Neema-wound Skin Appearance) No Abnormality, No Abnormality Assessed -Temperature (Neema-wound Skin No Abnormality No Abnormality Appearance) (Pt Warm) (Pt Warm) -Tenderness on Palpation (Neema-wound No Yes Skin Appearance) -Ulcer Cleansing Rinsed/ Not Cleansed Irrigated with Saline -Foul Odor after Cleansing No No -Anesthetic Used 5% Lidocaine 5% Lidocaine Gel Gel #2 Left posterior leg -Current Size (cm) - Length 5.5 0.2 -Current Size (cm) - Width 2 0.3 -Current Size (cm) - Depth 0.1 0.1 -Total Square Cm 11.0 0.06 -Photo Taken No -Exudate Amt Small None Present -Exudate Type Serosanguineous -Wound Margin Distinct, Flat & Intact Outline Attached -Granulation Amt None Present (0 Small (1-33%) %) -Granulation Quality [place] Wall[place] -Necrosis Amt None Present (0 None Present (0 %) %) -Structure Exposed N/A -Texture (Neema-wound Skin Appearance) Assessed, Scarring Scarring -Moisture (Neema-wound Skin Appearance) No Abnormality, No Abnormality Assessed -Color (Neema-wound Skin Appearance) No Abnormality, No Abnormality Assessed -Temperature (Neema-wound Skin No Abnormality No Abnormality Appearance) (Pt Warm) (Pt Warm) -Tenderness on Palpation (Neema-wound No No Skin Appearance) -Ulcer Cleansing Rinsed/ Soap and Water Irrigated with Saline -Foul Odor after Cleansing No No -Anesthetic Used 5% Lidocaine 5% Lidocaine Gel Gel Right Calf (cm) 37 Right Ankle (cm) 22 Left Calf (cm) 38.5 Left Ankle (cm) 22.2 WC - Nurse 2 - General Ulcer CM Notes Start: 06/10/22 08:49 Freq: Status: Active Protocol: Activity Type Activity Date Activity User E-sign Co-sign Detail Recorded Client Recorded Date Recorded By Document 06/10/22 08:58 MW [id number] 06/10/22 09:04 MW Document 06/17/22 09:05 MW [id number] 06/17/22 09:12 MW 06/10/22 06/17/22 08:58 09:05 Wound Center Nurse 2 #1 Right Post leg -Time 09:02 09:11 -Correct Patient Yes Yes -Correct Side, Site, Position Yes Yes -Correct Procedure Yes Yes -Procedure Performed Yes No -Type of Procedure Debridement -Clinical Debridement Subcutaneous -Tissue Removed Subcutaneous -Post Debridement (cm) - Length 0.3 0 -Post Debridement (cm) - Width 0.2 0 -Post Debridement (cm) - Depth 0.1 0 -Total Square (Post) (cm) 0.06 0 -Area of Debridement (cm) - Length 0.3 -Area of Debridement (cm) - Width 0.2 -Total Square (Area) (cm) 0.06 -Tunneling No -Undermining/Tunneling No -Circular Undermining No -Wound/Ulcer Outcome Not Healed Healed- Epithelialized -Ulcer Cleansing Rinsed/ Irrigated with Saline -Foul Odor after Cleansing No -Bioengineered Tissue No -Bleeding Controlled with Pressure -Treatment Response Procedure Tolerated Well -Offloading No -Debridement - Subq, 1st 20sq cm No #2 Left posterior leg -Time 08:59 09:11 -Correct Patient Yes Yes -Correct Side, Site, Position Yes Yes -Correct Procedure Yes Yes -Procedure Performed Yes Yes -Type of Procedure Debridement Debridement -Clinical Debridement Subcutaneous Subcutaneous -Tissue Removed Subcutaneous Subcutaneous -Post Debridement (cm) - Length 0.2 5.5 -Post Debridement (cm) - Width 3.0 3.0 -Post Debridement (cm) - Depth 0.1 0.1 -Total Square (Post) (cm) 0.60 16.50 -Area of Debridement (cm) - Length 0.2 5.5 -Area of Debridement (cm) - Width 3.0 3.0 -Total Square (Area) (cm) 0.60 16.50 -Tunneling No No -Undermining/Tunneling No No -Circular Undermining No No -Wound/Ulcer Outcome Not Healed Not Healed -Ulcer Cleansing Rinsed/ Irrigated with Saline -Foul Odor after Cleansing No -Bioengineered Tissue No No -Bleeding Controlled with Pressure -Treatment Response Procedure Tolerated Well -Offloading No -Debridement - Subq, 1st 20sq cm Yes Yes Pain Scale: 0-10 Numeric Is Patient Pain Free? Yes Yes - Nurse 3 - General Ulcer D/C NN Start: 06/10/22 08:49 Freq: Status: Active Protocol: Activity Type Activity Date Activity User E-sign Co-sign Detail Recorded Client Recorded Date Recorded By Document 06/10/22 09:25 UT [id number] 06/10/22 09:27 AK Document 06/17/22 09:25 [facility] [id number] 06/17/22 09:25 BMF 06/10/22 06/17/22 09:25 09:25 Wound Care Nurse 3 #1 Right Post leg -Ulcer Cleansing Rinsed/ Irrigated with Saline -Foul Odor after Cleansing No -Negative Pressure Wound Therapy N/A -Primary Dressing Applied Aquacel Extra -Primary Dressing Covered/Secured with Dry Gauze & Roll Gauze, Secured with Tape -Aquacel Extra 0 #2 Left posterior leg -Ulcer Cleansing Rinsed/ Rinsed/ Irrigated with Irrigated with Saline Saline -Foul Odor after Cleansing No No -Negative Pressure Wound Therapy N/A -Primary Dressing Applied Aquacel Extra NonAdherent Contact Layer -Other Dressing XEROFORM/ ADAPTIC -Primary Dressing Covered/Secured with Dry Gauze & Dry Gauze & Roll Gauze, Roll Gauze, Secured with Secured with Tape Tape -Aquacel Extra 1 Treatment Response Procedure Tolerated Well Pain Scale: 0-10 Numeric Is Patient Pain Free? Yes Yes - Visit Discharge Discharge Condition Stable Stable Ambulatory Status Ambulatory Ambulatory,Cane Transportation Private Auto Private Auto Medication Reconcilliation completed & Yes provided to patient/care provider Clinical Summary of Care Provided Yes Assessment/Plan Assessment/Plan (1) Infected insect bite of lower extremity: CODE(S): S80.869A - Insect bite (nonvenomous), unspecified lower leg, initial encounter; L08.9 - Local infection of the skin and subcutaneous tissue, unspecified; W57.XXXA - Bitten or stung by nonvenomous insect and other nonvenomous arthropods, initial encounter (2) Venous insufficiency of both lower extremities: CODE(S): I87.2 - Venous insufficiency (chronic) (peripheral) PLAN: Wash areas on left legs with antibacterial soap apply Aquacel extra to all areas cover with Adaptic and gauze and tape every day Patient is scheduled for venous and brachial study in July Follow-up in 1 week
[2022-06-24 08:46] VITALS: BP 146/69; PULSE 87; RESP 16; TEMP 35.4
--- NOTE | 2022-06-24 10:27 | PCM.WC.PN ---
History of Present Illness Date of Service: 06/24/22 Chief Complaint: Follow-up posterior right and left calf area. She also wants me look at her left lateral face. 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 She complains that she has open sores on the left lateral high cheekbone down in a keeps moving down towards the jaw. She is currently on cephalexin by her family doctor that seems to be clearing it up. Can see the outline of where it was on her face and she has 1 small open area that is superficial. The right posterior leg looks more like a insect bite with some depth and some erythema around the edge. She states that its been going on for over a month not healing well. The left leg cluster has several open areas that are very superficial and almost crusted over. Patient states she just got over a bad case of cellulitis that happens every couple of months. She states she wears compression stockings regularly but still gets the cellulitis. This last time she was hospitalized for 4 days for her cellulitis. Patient would like to get a total knee replacement with Dr. Dobbs her orthopedic surgeon wants this figured out why she keeps breaking down on her lower legs and he referred her to us. Progress of Wound: Okay the left lateral face still has an outline of where it was I still want her to go to and we will refer her to dermatology in [place] for biopsy. I think she may have a form of cancer on her skin. The left lateral lower leg is pretty much healed she has like 2 little dots that she still wants to come back for next week we will use Xeroform dressings to left lower leg. Another spot reopened. And she is just started her antibiotic on Wednesday. Discussed with patient to start using Hibiclens washes daily for 7 days and then once a week for 4 more weeks from head to toe every hair follicle washed. The right posterior leg is healed. Patient is scheduled for her arterial brachial studies and venous studies July 19 and she is scheduled to see dermatology on 21 July.. Subjective Subjective Patient is in agreement we give it gave her a bottle of soap to try washing with. Objective Data Objective Data All areas are very superficial and she should be healed but she keeps popping open with open sores like over and over and I think is because of the staph infection. Patient is to finish her antibiotic therapy and we should be able to discharge her next week. Vital Signs: Vital Signs Temp Pulse Resp BP O2 Del Method 95.8 F L 87 16 146/69 H Room Air 06/24/22 08:46 06/24/22 08:46 06/24/22 08:46 06/24/22 08:46 06/24/22 08:46 Oxygen Delivery Method Room Air Lab / Micro Data Attestation: I reviewed the patient's lab results. Micro: Microbiology 06/17/22 09:10 Wound Abcess - Other Gram Stain - Final 06/17/22 09:10 Wound Abcess - Other Wound Culture - Final Staphylococcus aureus Staphylococcus epidermidis 06/17/22 09:10 Wound Abcess - Other Anaerobic Culture - Final No anaerobic bacteria isolated. Physical Exam Const oriented x3 General Appearance: cooperative Exam Limitations: no limitations HEENT Nose: external nose normal External Ear: external ears normal Mouth: oral and palatal mucosa normal Eyes PERRL General Eye: normal appearance of both eyes Neck full ROM General: normal visual inspection Resp normal respiratory effort Effort and Inspection: able to speak in complete sentences Auscultation: clear to auscultation bilaterally Cardio regular rate and regular rhythm Palpation: normal PMI Rate: regular rate Rhythm: regular rhythm GI Auscultation: normoactive bowel sounds Palpation: soft and no hepatosplenomegaly external exam normal Back/Spine Cervical Spine: cervical ROM normal Thoracic Spine / Upper Back: normal to inspection Lumbar Spine / Lower Back: normal to inspection Extremity normal to inspection General Extremity: normal exam except as noted Skin no rashes or lesions noted Skin Narrative: Superficial cluster of open sores on the left posterior calf. Right posterior calf has more of a hole such from a possible insect bite or spider bite. Lesion on her face open superficial closer to her jaw. Can see the outline of her infected skin previously Neuro oriented x3 Psych Appearance: grossly normal Speech: normal speech Thought Content: normal thought content Judgement: judgement good Debridement Note Debridement Note Wound debrided: Left posterior calf venous insufficiency openings Laterality: Left Type of Debridement: Excisional debridement Anesthesia Used: 5% Lidocaine Gel Depth: Down to and including healthy tissue Percentage of wound debrided: 100 Instrument Used: 5mm curette Tissue Removed: Fibrin Severity: Limited To Skin Breakdown Amount of bleeding with debridement: None Patient tolerated procedure: Patient tolerated procedure well Post-Debridement Measurements and Additional Note: Post-Debridement Measurements/Treatment WC - Nurse 1 - General Ulcer Assessment Start: 06/10/22 08:49 Freq: Status: Active Protocol: RAS Activity Type Activity Date Activity User E-sign Co-sign Detail Recorded Client Recorded Date Recorded By Document 06/10/22 08:49 KR [id number] 06/10/22 08:53 KR Document 06/17/22 08:50 DL [id number] 06/17/22 08:56 DL Document 06/24/22 08:46 BMF [id number] 06/24/22 08:52 BMF 06/10/22 06/17/22 06/24/22 08:49 08:50 08:46 - Today's Visit Information Type of service Follow-up Visit Follow-up Visit Follow-up Visit (Physician/RUBBISH COLLECTION SUPERVISOR (Physician/RUBBISH COLLECTION SUPERVISOR (Physician/RUBBISH COLLECTION SUPERVISOR ) ) ) Arrival Mode Ambulatory,Cane Ambulatory Ambulatory Transfer Assistance None None Patient Identification Verified (Name & Yes Yes Yes ) Patient Requires Transmission-Based No No Precautions Finger Stick Blood Sugar(mg/dl) (if not checked indicated): Blood Sugar Stated by Patient Vital Signs Temperature (97.8 F-99.1 F) 96.9 F L 96.2 F L 95.8 F L Temperature Source Temporal Temporal Temporal Pulse Rate (60-100) 64 79 87 Pulse Location Monitor Monitor Monitor Respiratory Rate (12-18) 20 H 16 Respiratory rate source Observation Observation Oxygen Delivery Method Room Air Blood Pressure (90/60-120/80) 130/62 H 130/64 H 146/69 H Blood Pressure Mean (mm Hg) 84 86 94 Source Monitor Monitor Monitor Position Semi-Fowlers Sitting Blood Pressure Location Right Arm Left Arm History Since Last Visit- (Skip if this is Patient's initial visit) Have you changed medications since your No No No last visit? Any new allergies or adverse reactions No No No Had a fall/change in ADL's that may No No No increase risk of falls Signs or symptoms of abuse and/or No No No neglect since last visit Have you been in the hospital since your No No No last visit? Has dressing in place as prescribed Yes Yes Yes Has compression in place as prescribed N/A Yes N/A Has offloadiing in place as prescribed N/A N/A N/A Experienced any changes in pain level or No No No management Left Footwear Regular Shoe Diabetic Shoe Regular Shoe Right Footwear Regular Shoe Diabetic Shoe Regular Shoe Pain Scale: 0-10 Numeric Is Patient Pain Free? Yes Yes Yes WC - Nurse 1 - General Ulcer Measurement Start: 06/10/22 08:49 Freq: Status: Active Protocol: Activity Type Activity Date Activity User E-sign Co-sign Detail Recorded Client Recorded Date Recorded By Document 06/10/22 08:49 KR [id number] 06/10/22 08:53 KR Document 06/17/22 08:50 DL [id number] 06/17/22 08:56 DL Document 06/24/22 08:46 BMF [id number] 06/24/22 08:52 BMF 06/10/22 06/17/22 06/24/22 08:49 08:50 08:46 Wound Center Nurse 1 #1 Right Post leg -Current Size (cm) - Length 0.2 0.1 -Current Size (cm) - Width 0.2 0.1 -Current Size (cm) - Depth 0.1 0.1 -Total Square Cm 0.04 0.01 -Photo Taken No -Exudate Amt None Present None Present -Wound Margin Distinct, Flat & Intact Outline Attached -Granulation Amt Small (1-33%) Small (1-33%) -Granulation Quality Lemitar Lemitar -Necrosis Amt None Present (0 None Present (0 %) %) -Structure Exposed N/A -Texture (Neema-wound Skin Appearance) Assessed, Scarring Scarring -Moisture (Neema-wound Skin Appearance) No Abnormality, No Abnormality Assessed -Color (Neema-wound Skin Appearance) No Abnormality, No Abnormality Assessed -Temperature (Neema-wound Skin No Abnormality No Abnormality Appearance) (Pt Warm) (Pt Warm) -Tenderness on Palpation (Neema-wound No Yes Skin Appearance) -Ulcer Cleansing Rinsed/ Not Cleansed Irrigated with Saline -Foul Odor after Cleansing No No -Anesthetic Used 5% Lidocaine 5% Lidocaine Gel Gel #2 Left posterior leg -Combined with other wound No -Current Size (cm) - Length 5.5 0.2 0.1 -Current Size (cm) - Width 2 0.3 0.1 -Current Size (cm) - Depth 0.1 0.1 0.1 -Total Square Cm 11.0 0.06 0.01 -Date of Last Picture (Recall this 06/24/22 field) -Photo Taken No Yes -Tunneling No -Undermining/Tunneling No -Circular Undermining No -Exudate Amt Small None Present None Present -Exudate Type Serosanguineous -Wound Margin Distinct, Flat & Intact Flat & Intact Outline Attached -Granulation Amt None Present (0 Small (1-33%) Small (1-33%) %) -Granulation Quality Lemitar Lemitar Red -Necrosis Amt None Present (0 None Present (0 None Present (0 %) %) %) -Structure Exposed N/A -Texture (Neema-wound Skin Appearance) Assessed, Scarring Assessed, Scarring Scarring -Moisture (Neema-wound Skin Appearance) No Abnormality, No Abnormality Assessed Assessed -Color (Neema-wound Skin Appearance) No Abnormality, No Abnormality Assessed Assessed -Temperature (Neema-wound Skin No Abnormality No Abnormality No Abnormality Appearance) (Pt Warm) (Pt Warm) (Pt Warm) -Tenderness on Palpation (Neema-wound No No No Skin Appearance) -Ulcer Cleansing Rinsed/ Soap and Water Rinsed/ Irrigated with Irrigated with Saline Saline -Foul Odor after Cleansing No No No -Anesthetic Used 5% Lidocaine 5% Lidocaine 5% Lidocaine Gel Gel Gel Lower Limb Edema Present Yes Right Calf (cm) 37 Right Ankle (cm) 22 Left Calf (cm) 38.5 39.4 Left Ankle (cm) 22.2 22.5 WC - Nurse 2 - General Ulcer CM Notes Start: 06/10/22 08:49 Freq: Status: Active Protocol: Activity Type Activity Date Activity User E-sign Co-sign Detail Recorded Client Recorded Date Recorded By Document 06/10/22 08:58 MW [id number] 06/10/22 09:04 MW Document 06/17/22 09:05 MW [id number] 06/17/22 09:12 MW Document 06/24/22 09:05 MW Desktop 06/24/22 09:09 MW 06/10/22 06/17/22 06/24/22 08:58 09:05 09:05 Wound Center Nurse 2 #1 Right Post leg -Time 09:02 09:11 -Correct Patient Yes Yes -Correct Side, Site, Position Yes Yes -Correct Procedure Yes Yes -Procedure Performed Yes No -Type of Procedure Debridement -Clinical Debridement Subcutaneous -Tissue Removed Subcutaneous -Post Debridement (cm) - Length 0.3 0 -Post Debridement (cm) - Width 0.2 0 -Post Debridement (cm) - Depth 0.1 0 -Total Square (Post) (cm) 0.06 0 -Area of Debridement (cm) - Length 0.3 -Area of Debridement (cm) - Width 0.2 -Total Square (Area) (cm) 0.06 -Tunneling No -Undermining/Tunneling No -Circular Undermining No -Wound/Ulcer Outcome Not Healed Healed- Epithelialized -Ulcer Cleansing Rinsed/ Irrigated with Saline -Foul Odor after Cleansing No -Bioengineered Tissue No -Bleeding Controlled with Pressure -Treatment Response Procedure Tolerated Well -Offloading No -Debridement - Subq, 1st 20sq cm No #2 Left posterior leg -Time 08:59 09:11 09:05 -Correct Patient Yes Yes Yes -Correct Side, Site, Position Yes Yes Yes -Correct Procedure Yes Yes Yes -Procedure Performed Yes Yes No -Type of Procedure Debridement Debridement -Clinical Debridement Subcutaneous Subcutaneous -Tissue Removed Subcutaneous Subcutaneous -Post Debridement (cm) - Length 0.2 5.5 3.3 -Post Debridement (cm) - Width 3.0 3.0 2.5 -Post Debridement (cm) - Depth 0.1 0.1 0.1 -Total Square (Post) (cm) 0.60 16.50 8.25 -Area of Debridement (cm) - Length 0.2 5.5 -Area of Debridement (cm) - Width 3.0 3.0 -Total Square (Area) (cm) 0.60 16.50 -Tunneling No No No -Undermining/Tunneling No No No -Circular Undermining No No No -Wound/Ulcer Outcome Not Healed Not Healed Not Healed -Ulcer Cleansing Rinsed/ Rinsed/ Irrigated with Irrigated with Saline Saline -Foul Odor after Cleansing No No -Bioengineered Tissue No No No -Bleeding Controlled with Pressure -Treatment Response Procedure Tolerated Well -Offloading No -Debridement - Subq, 1st 20sq cm Yes Yes Pain Scale: 0-10 Numeric Is Patient Pain Free? Yes Yes Yes WC - Nurse 3 - General Ulcer D/C NN Start: 06/10/22 08:49 Freq: Status: Active Protocol: Activity Type Activity Date Activity User E-sign Co-sign Detail Recorded Client Recorded Date Recorded By Document 06/10/22 09:25 MI [id number] 06/10/22 09:27 AK Document 06/17/22 09:25 [facility] [id number] 06/17/22 09:25 [facility] Document 06/24/22 09:12 MW Desktop 06/24/22 09:13 MW 06/10/22 06/17/22 06/24/22 09:25 09:25 09:12 Wound Care Nurse 3 #1 Right Post leg -Ulcer Cleansing Rinsed/ Irrigated with Saline -Foul Odor after Cleansing No -Negative Pressure Wound Therapy N/A -Primary Dressing Applied Aquacel Extra -Primary Dressing Covered/Secured with Dry Gauze & Roll Gauze, Secured with Tape -Aquacel Extra 0 #2 Left posterior leg -Ulcer Cleansing Rinsed/ Rinsed/ Rinsed/ Irrigated with Irrigated with Irrigated with Saline Saline Saline -Foul Odor after Cleansing No No No -Negative Pressure Wound Therapy N/A N/A -Primary Dressing Applied Aquacel Extra NonAdherent Contact Layer -Other Dressing XEROFORM/ xerofrom ADAPTIC -Primary Dressing Covered/Secured with Dry Gauze & Dry Gauze & Dry Gauze & Roll Gauze, Roll Gauze, Roll Gauze, Secured with Secured with Secured with Tape Tape Tape -Aquacel Extra 1 Right -Lotion applied to leg before No compression wrap -Stockings Yes Left -Lotion applied to leg before No compression wrap -Stockings Yes Treatment Response Procedure Procedure Tolerated Well Tolerated Well Pain Scale: 0-10 Numeric Is Patient Pain Free? Yes Yes Yes Teaching: Wound Center Dressing Your Wound -Person Taught Patient -Teaching Method Discussion -Response to teaching Verbalize understanding WC - Visit Discharge Discharge Condition Stable Stable Stable Ambulatory Status Ambulatory Ambulatory,Cane Ambulatory,Cane Transportation Private Auto Private Auto Private Auto Accompanied by self Medication Reconcilliation completed & Yes No provided to patient/care provider Clinical Summary of Care Provided Yes Yes Assessment/Plan Assessment/Plan (1) Infected insect bite of lower extremity: CODE(S): S80.869A - Insect bite (nonvenomous), unspecified lower leg, initial encounter; L08.9 - Local infection of the skin and subcutaneous tissue, unspecified; W57.XXXA - Bitten or stung by nonvenomous insect and other nonvenomous arthropods, initial encounter (2) Venous insufficiency of both lower extremities: CODE(S): I87.2 - Venous insufficiency (chronic) (peripheral) PLAN: Wash areas on left legs with antibacterial soap apply Aquacel extra to all areas cover with Xeroform dressing then gauze and tape every day Patient is scheduled for venous and brachial study in July Follow-up in 1 week Patient is to wash every day with Hibiclens from head to toe every hair follicle to be scrubbed. And once a week for 4 more weeks to finish the Staph infection clearance
[2022-07-01 08:45] VITALS: BP 153/71; PULSE 71; TEMP 36.4
--- NOTE | 2022-07-01 10:19 | PCM.WC.PN ---
History of Present Illness Date of Service: 07/01/22 Chief Complaint: Follow-up posterior right and left calf area. She also wants me look at her left lateral face. 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 She complains that she has open sores on the left lateral high cheekbone down in a keeps moving down towards the jaw. She is currently on cephalexin by her family doctor that seems to be clearing it up. Can see the outline of where it was on her face and she has 1 small open area that is superficial. The right posterior leg looks more like a insect bite with some depth and some erythema around the edge. She states that its been going on for over a month not healing well. The left leg cluster has several open areas that are very superficial and almost crusted over. Patient states she just got over a bad case of cellulitis that happens every couple of months. She states she wears compression stockings regularly but still gets the cellulitis. This last time she was hospitalized for 4 days for her cellulitis. Patient would like to get a total knee replacement with Dr. Dobbs her orthopedic surgeon wants this figured out why she keeps breaking down on her lower legs and he referred her to us. Progress of Wound: Patient is completely healed on the leg wounds will continue the weekly washes now of her Hibiclens washes to get rid of the MRSA.\ Patient is to continue with dermatology appointment and she has a arterial brachial studies ordered that is in July also. We will call her with results she does not have to return. Patient will be discharged from the wound center and follow-up as needed Subjective Subjective Patient is agreeable to plan and is happy that she is healed Objective Data Objective Data All areas on her lower legs right and left are healed Vital Signs: Vital Signs Temp Pulse Resp BP O2 Del Method 97.6 F L 71 16 153/71 H Room Air 07/01/22 08:45 07/01/22 08:45 06/24/22 08:46 07/01/22 08:45 06/24/22 08:46 Oxygen Delivery Method Room Air Lab / Micro Data Attestation: I reviewed the patient's lab results. Micro: Microbiology 06/17/22 09:10 Wound Abcess - Other Gram Stain - Final 06/17/22 09:10 Wound Abcess - Other Wound Culture - Final Staphylococcus aureus Staphylococcus epidermidis 06/17/22 09:10 Wound Abcess - Other Anaerobic Culture - Final No anaerobic bacteria isolated. Physical Exam Const oriented x3 General Appearance: cooperative Exam Limitations: no limitations HEENT Nose: external nose normal External Ear: external ears normal Mouth: oral and palatal mucosa normal Eyes PERRL General Eye: normal appearance of both eyes Neck full ROM General: normal visual inspection Resp normal respiratory effort Effort and Inspection: able to speak in complete sentences Auscultation: clear to auscultation bilaterally Cardio regular rate and regular rhythm Palpation: normal PMI Rate: regular rate Rhythm: regular rhythm GI Auscultation: normoactive bowel sounds Palpation: soft and no hepatosplenomegaly external exam normal Back/Spine Cervical Spine: cervical ROM normal Thoracic Spine / Upper Back: normal to inspection Lumbar Spine / Lower Back: normal to inspection Extremity normal to inspection General Extremity: normal exam except as noted Skin no rashes or lesions noted Skin Narrative: Superficial cluster of open sores on the left posterior calf. Right posterior calf has more of a hole such from a possible insect bite or spider bite. Lesion on her face open superficial closer to her jaw. Can see the outline of her infected skin previously Neuro oriented x3 Psych Appearance: grossly normal Speech: normal speech Thought Content: normal thought content Judgement: judgement good Debridement Note Debridement Note Post-Debridement Measurements and Additional Note: Post-Debridement Measurements/Treatment - Nurse 1 - General Ulcer Assessment Start: 06/10/22 08:49 Freq: Status: Active Protocol: CATALINO.ALINE Activity Type Activity Date Activity User E-sign Co-sign Detail Recorded Client Recorded Date Recorded By Document 06/10/22 08:49 KR [id number] 06/10/22 08:53 KR Document 06/17/22 08:50 DL [id number] 06/17/22 08:56 DL Document 06/24/22 08:46 BMF [id number] 06/24/22 08:52 BMF Document 07/01/22 08:45 KR [id number] 07/01/22 08:49 KR 06/10/22 06/17/22 06/24/22 08:49 08:50 08:46 - Today's Visit Information Type of service Follow-up Visit Follow-up Visit Follow-up Visit (Physician/MACHINE SHORTHAND TEACHER (Physician/MACHINE SHORTHAND TEACHER (Physician/MACHINE SHORTHAND TEACHER ) ) ) Arrival Mode Ambulatory,Cane Ambulatory Ambulatory Transfer Assistance None None Patient Identification Verified (Name & Yes Yes Yes ) Patient Requires Transmission-Based No No Precautions Finger Stick Blood Sugar(mg/dl) (if not checked indicated): Blood Sugar Stated by Patient Vital Signs Temperature (97.8 F-99.1 F) 96.9 F L 96.2 F L 95.8 F L Temperature Source Temporal Temporal Temporal Pulse Rate (60-100) 64 79 87 Pulse Location Monitor Monitor Monitor Respiratory Rate (12-18) 20 H 16 Respiratory rate source Observation Observation Oxygen Delivery Method Room Air Blood Pressure (90/60-120/80) 130/62 H 130/64 H 146/69 H Blood Pressure Mean (mm Hg) 84 86 94 Source Monitor Monitor Monitor Position Semi-Fowlers Sitting Blood Pressure Location Right Arm Left Arm History Since Last Visit- (Skip if this is Patient's initial visit) Have you changed medications since your No No No last visit? Any new allergies or adverse reactions No No No Had a fall/change in ADL's that may No No No increase risk of falls Signs or symptoms of abuse and/or No No No neglect since last visit Have you been in the hospital since your No No No last visit? Has dressing in place as prescribed Yes Yes Yes Has compression in place as prescribed N/A Yes N/A Has offloadiing in place as prescribed N/A N/A N/A Experienced any changes in pain level or No No No management Left Footwear Regular Shoe Diabetic Shoe Regular Shoe Right Footwear Regular Shoe Diabetic Shoe Regular Shoe Pain Scale: 0-10 Numeric Is Patient Pain Free? Yes Yes Yes 07/01/22 08:45 - Today's Visit Information Type of service Follow-up Visit (Physician/MACHINE SHORTHAND TEACHER ) Arrival Mode Ambulatory,Cane Transfer Assistance Patient Identification Verified (Name & Yes ) Patient Requires Transmission-Based Precautions Finger Stick Blood Sugar(mg/dl) (if indicated): Blood Sugar Vital Signs Temperature (97.8 F-99.1 F) 97.6 F L Temperature Source Temporal Pulse Rate (60-100) 71 Pulse Location Monitor Respiratory Rate (12-18) Respiratory rate source Oxygen Delivery Method Blood Pressure (90/60-120/80) 153/71 H Blood Pressure Mean (mm Hg) 98 Source Monitor Position Semi-Fowlers Blood Pressure Location Right Arm History Since Last Visit- (Skip if this is Patient's initial visit) Have you changed medications since your No last visit? Any new allergies or adverse reactions No Had a fall/change in ADL's that may No increase risk of falls Signs or symptoms of abuse and/or No neglect since last visit Have you been in the hospital since your No last visit? Has dressing in place as prescribed Yes Has compression in place as prescribed N/A Has offloadiing in place as prescribed N/A Experienced any changes in pain level or No management Left Footwear Regular Shoe Right Footwear Regular Shoe Pain Scale: 0-10 Numeric Is Patient Pain Free? Yes WC - Nurse 1 - General Ulcer Measurement Start: 06/10/22 08:49 Freq: Status: Active Protocol: Activity Type Activity Date Activity User E-sign Co-sign Detail Recorded Client Recorded Date Recorded By Document 06/10/22 08:49 KR [id number] 06/10/22 08:53 KR Document 06/17/22 08:50 DL [id number] 06/17/22 08:56 DL Document 06/24/22 08:46 [facility] [id number] 06/24/22 08:52 BMF Document 07/01/22 08:45 KR [id number] 07/01/22 08:49 KR 06/10/22 06/17/22 06/24/22 08:49 08:50 08:46 Wound Center Nurse 1 #2 Left posterior leg -Combined with other wound No -Current Size (cm) - Length 5.5 0.2 0.1 -Current Size (cm) - Width 2 0.3 0.1 -Current Size (cm) - Depth 0.1 0.1 0.1 -Total Square Cm 11.0 0.06 0.01 -Date of Last Picture (Recall this 06/24/22 field) -Photo Taken No Yes -Tunneling No -Undermining/Tunneling No -Circular Undermining No -Exudate Amt Small None Present None Present -Exudate Type Serosanguineous -Wound Margin Distinct, Flat & Intact Flat & Intact Outline Attached -Granulation Amt None Present (0 Small (1-33%) Small (1-33%) %) -Granulation Quality [place] Red -Necrosis Amt None Present (0 None Present (0 None Present (0 %) %) %) -Structure Exposed N/A -Texture (Neema-wound Skin Appearance) Assessed, Scarring Assessed, Scarring Scarring -Moisture (Neema-wound Skin Appearance) No Abnormality, No Abnormality Assessed Assessed -Color (Neema-wound Skin Appearance) No Abnormality, No Abnormality Assessed Assessed -Temperature (Neema-wound Skin No Abnormality No Abnormality No Abnormality Appearance) (Pt Warm) (Pt Warm) (Pt Warm) -Tenderness on Palpation (Neema-wound No No No Skin Appearance) -Ulcer Cleansing Rinsed/ Soap and Water Rinsed/ Irrigated with Irrigated with Saline Saline -Foul Odor after Cleansing No No No -Anesthetic Used 5% Lidocaine 5% Lidocaine 5% Lidocaine Gel Gel Gel #1 Right Post leg -Current Size (cm) - Length 0.2 0.1 -Current Size (cm) - Width 0.2 0.1 -Current Size (cm) - Depth 0.1 0.1 -Total Square Cm 0.04 0.01 -Photo Taken No -Exudate Amt None Present None Present -Wound Margin Distinct, Flat & Intact Outline Attached -Granulation Amt Small (1-33%) Small (1-33%) -Granulation Quality [place] -Necrosis Amt None Present (0 None Present (0 %) %) -Structure Exposed N/A -Texture (Neema-wound Skin Appearance) Assessed, Scarring Scarring -Moisture (Neema-wound Skin Appearance) No Abnormality, No Abnormality Assessed -Color (Neema-wound Skin Appearance) No Abnormality, No Abnormality Assessed -Temperature (Neema-wound Skin No Abnormality No Abnormality Appearance) (Pt Warm) (Pt Warm) -Tenderness on Palpation (Neema-wound No Yes Skin Appearance) -Ulcer Cleansing Rinsed/ Not Cleansed Irrigated with Saline -Foul Odor after Cleansing No No -Anesthetic Used 5% Lidocaine 5% Lidocaine Gel Gel Lower Limb Edema Present Yes Right Calf (cm) 37 Right Ankle (cm) 22 Left Calf (cm) 38.5 39.4 Left Ankle (cm) 22.2 22.5 07/01/22 08:45 Wound Center Nurse 1 #2 Left posterior leg -Combined with other wound -Current Size (cm) - Length 0.1 -Current Size (cm) - Width 0.1 -Current Size (cm) - Depth 0.1 -Total Square Cm 0.01 -Date of Last Picture (Recall this field) -Photo Taken -Tunneling -Undermining/Tunneling -Circular Undermining -Exudate Amt Small -Exudate Type Serosanguineous -Wound Margin Distinct, Outline Attached -Granulation Amt Small (1-33%) -Granulation Quality [place] -Necrosis Amt None Present (0 %) -Structure Exposed -Texture (Neema-wound Skin Appearance) Assessed, Scarring -Moisture (Neema-wound Skin Appearance) No Abnormality, Assessed -Color (Neema-wound Skin Appearance) No Abnormality, Assessed -Temperature (Neema-wound Skin No Abnormality Appearance) (Pt Warm) -Tenderness on Palpation (Neema-wound No Skin Appearance) -Ulcer Cleansing Rinsed/ Irrigated with Saline -Foul Odor after Cleansing No -Anesthetic Used 5% Lidocaine Gel #1 Right Post leg -Current Size (cm) - Length -Current Size (cm) - Width -Current Size (cm) - Depth -Total Square Cm -Photo Taken -Exudate Amt -Wound Margin -Granulation Amt -Granulation Quality -Necrosis Amt -Structure Exposed -Texture (Neema-wound Skin Appearance) -Moisture (Neema-wound Skin Appearance) -Color (Neema-wound Skin Appearance) -Temperature (Neema-wound Skin Appearance) -Tenderness on Palpation (Neema-wound Skin Appearance) -Ulcer Cleansing -Foul Odor after Cleansing -Anesthetic Used Lower Limb Edema Present Right Calf (cm) Right Ankle (cm) Left Calf (cm) Left Ankle (cm) WC - Nurse 2 - General Ulcer CM Notes Start: 06/10/22 08:49 Freq: Status: Active Protocol: Activity Type Activity Date Activity User E-sign Co-sign Detail Recorded Client Recorded Date Recorded By Document 06/10/22 08:58 MW [id number] 06/10/22 09:04 MW Document 06/17/22 09:05 MW [id number] 06/17/22 09:12 MW Document 06/24/22 09:05 MW Desktop 06/24/22 09:09 MW Document 07/01/22 09:09 MW [id number] 07/01/22 09:10 MW 06/10/22 06/17/22 06/24/22 08:58 09:05 09:05 Wound Center Nurse 2 #2 Left posterior leg -Time 08:59 09:11 09:05 -Correct Patient Yes Yes Yes -Correct Side, Site, Position Yes Yes Yes -Correct Procedure Yes Yes Yes -Procedure Performed Yes Yes No -Type of Procedure Debridement Debridement -Clinical Debridement Subcutaneous Subcutaneous -Tissue Removed Subcutaneous Subcutaneous -Post Debridement (cm) - Length 0.2 5.5 3.3 -Post Debridement (cm) - Width 3.0 3.0 2.5 -Post Debridement (cm) - Depth 0.1 0.1 0.1 -Total Square (Post) (cm) 0.60 16.50 8.25 -Area of Debridement (cm) - Length 0.2 5.5 -Area of Debridement (cm) - Width 3.0 3.0 -Total Square (Area) (cm) 0.60 16.50 -Tunneling No No No -Undermining/Tunneling No No No -Circular Undermining No No No -Wound/Ulcer Outcome Not Healed Not Healed Not Healed -Ulcer Cleansing Rinsed/ Rinsed/ Irrigated with Irrigated with Saline Saline -Foul Odor after Cleansing No No -Bioengineered Tissue No No No -Bleeding Controlled with Pressure -Treatment Response Procedure Tolerated Well -Offloading No -Debridement - Subq, 1st 20sq cm Yes Yes #1 Right Post leg -Time 09:02 09:11 -Correct Patient Yes Yes -Correct Side, Site, Position Yes Yes -Correct Procedure Yes Yes -Procedure Performed Yes No -Type of Procedure Debridement -Clinical Debridement Subcutaneous -Tissue Removed Subcutaneous -Post Debridement (cm) - Length 0.3 0 -Post Debridement (cm) - Width 0.2 0 -Post Debridement (cm) - Depth 0.1 0 -Total Square (Post) (cm) 0.06 0 -Area of Debridement (cm) - Length 0.3 -Area of Debridement (cm) - Width 0.2 -Total Square (Area) (cm) 0.06 -Tunneling No -Undermining/Tunneling No -Circular Undermining No -Wound/Ulcer Outcome Not Healed Healed- Epithelialized -Ulcer Cleansing Rinsed/ Irrigated with Saline -Foul Odor after Cleansing No -Bioengineered Tissue No -Bleeding Controlled with Pressure -Treatment Response Procedure Tolerated Well -Offloading No -Debridement - Subq, 1st 20sq cm No Pain Scale: 0-10 Numeric Is Patient Pain Free? Yes Yes Yes 07/01/22 09:09 Wound Center Nurse 2 #2 Left posterior leg -Time 09:09 -Correct Patient Yes -Correct Side, Site, Position Yes -Correct Procedure Yes -Procedure Performed No -Type of Procedure -Clinical Debridement -Tissue Removed -Post Debridement (cm) - Length 0 -Post Debridement (cm) - Width 0 -Post Debridement (cm) - Depth 0 -Total Square (Post) (cm) 0 -Area of Debridement (cm) - Length -Area of Debridement (cm) - Width -Total Square (Area) (cm) -Tunneling -Undermining/Tunneling -Circular Undermining -Wound/Ulcer Outcome Healed- Epithelialized -Ulcer Cleansing -Foul Odor after Cleansing -Bioengineered Tissue -Bleeding Controlled with -Treatment Response -Offloading -Debridement - Subq, 20sq cm #1 Right Post leg -Time -Correct Patient -Correct Side, Site, Position -Correct Procedure -Procedure Performed -Type of Procedure -Clinical Debridement -Tissue Removed -Post Debridement (cm) - Length -Post Debridement (cm) - Width -Post Debridement (cm) - Depth -Total Square (Post) (cm) -Area of Debridement (cm) - Length -Area of Debridement (cm) - Width -Total Square (Area) (cm) -Tunneling -Undermining/Tunneling -Circular Undermining -Wound/Ulcer Outcome -Ulcer Cleansing -Foul Odor after Cleansing -Bioengineered Tissue -Bleeding Controlled with -Treatment Response -Offloading -Debridement - Subq, 20sq cm Pain Scale: 0-10 Numeric Is Patient Pain Free? Yes - Nurse 3 - General Ulcer D/C NN Start: 06/10/22 08:49 Freq: Status: Active Protocol: Activity Type Activity Date Activity User E-sign Co-sign Detail Recorded Client Recorded Date Recorded By Document 06/10/22 09:25 AK [id number] 06/10/22 09:27 AK Document 06/17/22 09:25 [facility] [id number] 06/17/22 09:25 BM Document 06/24/22 09:12 MW Desktop 06/24/22 09:13 MW Document 07/01/22 09:11 MW [id number] 07/01/22 09:12 MW 06/10/22 06/17/22 06/24/22 09:25 09:25 09:12 Wound Care Nurse 3 #2 Left posterior leg -Ulcer Cleansing Rinsed/ Rinsed/ Rinsed/ Irrigated with Irrigated with Irrigated with Saline Saline Saline -Foul Odor after Cleansing No No No -Negative Pressure Wound Therapy N/A N/A -Primary Dressing Applied Aquacel Extra NonAdherent Contact Layer -Other Dressing XEROFORM/ xerofrom ADAPTIC -Primary Dressing Covered/Secured with Dry Gauze & Dry Gauze & Dry Gauze & Roll Gauze, Roll Gauze, Roll Gauze, Secured with Secured with Secured with Tape Tape Tape -Aquacel Extra 1 #1 Right Post leg -Ulcer Cleansing Rinsed/ Irrigated with Saline -Foul Odor after Cleansing No -Negative Pressure Wound Therapy N/A -Primary Dressing Applied Aquacel Extra -Primary Dressing Covered/Secured with Dry Gauze & Roll Gauze, Secured with Tape -Aquacel Extra 0 Right -Lotion applied to leg before No compression wrap -Stockings Yes Left -Lotion applied to leg before No compression wrap -Stockings Yes Treatment Response Procedure Procedure Tolerated Well Tolerated Well Pain Scale: 0-10 Numeric Is Patient Pain Free? Yes Yes Yes Teaching: Wound Center Discharge Instructions -Person Taught -Teaching Method -Response to teaching Dressing Your Wound -Person Taught Patient -Teaching Method Discussion -Response to teaching Verbalize understanding WC - Visit Discharge Discharge Condition Stable Stable Stable Ambulatory Status Ambulatory Ambulatory,Cane Ambulatory,Cane Transportation Private Auto Private Auto Private Auto Accompanied by self Medication Reconcilliation completed & Yes No provided to patient/care provider Clinical Summary of Care Provided Yes Yes 07/01/22 09:11 Wound Care Nurse 3 #2 Left posterior leg -Ulcer Cleansing -Foul Odor after Cleansing -Negative Pressure Wound Therapy -Primary Dressing Applied -Other Dressing -Primary Dressing Covered/Secured with -Aquacel Extra #1 Right Post leg -Ulcer Cleansing -Foul Odor after Cleansing -Negative Pressure Wound Therapy -Primary Dressing Applied -Primary Dressing Covered/Secured with -Aquacel Extra Right -Lotion applied to leg before No compression wrap -Stockings Yes Left -Lotion applied to leg before No compression wrap -Stockings Yes Treatment Response Procedure Tolerated Well Pain Scale: 0-10 Numeric Is Patient Pain Free? Yes Teaching: Wound Center Discharge Instructions -Person Taught Patient -Teaching Method Discussion -Response to teaching Verbalize understanding Dressing Your Wound -Person Taught -Teaching Method -Response to teaching WC - Visit Discharge Discharge Condition Stable Ambulatory Status Ambulatory,Cane Transportation Private Auto Accompanied by self Medication Reconcilliation completed & No provided to patient/care provider Clinical Summary of Care Provided Yes Assessment/Plan Assessment/Plan (1) Infected insect bite of lower extremity: CODE(S): S80.869A - Insect bite (nonvenomous), unspecified lower leg, initial encounter; L08.9 - Local infection of the skin and subcutaneous tissue, unspecified; W57.XXXA - Bitten or stung by nonvenomous insect and other nonvenomous arthropods, initial encounter (2) Venous insufficiency of both lower extremities: CODE(S): I87.2 - Venous insufficiency (chronic) (peripheral) PLAN: Patient is scheduled for venous and brachial study in July and keep appointment with dermatology Patient is to wash every day with Hibiclens from head to toe every hair follicle to be scrubbed. And once a week for 4 more weeks to finish the Discharge from the wound center follow-up as needed
== END 2022-07-03 23:59 | disposition home or self-care (01) ==
LOC: WC 08:45
PROVIDERS: PCP Internal Medicine; Visit Provider Nurse Practitioner
DX: E11.622 Type 2 diabetes mellitus with other skin ulcer (principal); L97.222 Non-pressure chronic ulcer of left calf with fat layer exposed; L97.221 Non-pressure chronic ulcer of left calf limited to breakdown of skin; E11.59 Type 2 diabetes mellitus with other circulatory complications; I87.2 Venous insufficiency (chronic) (peripheral); L08.9 Local infection of the skin and subcutaneous tissue, unspecified; Z86.14 Personal history of Methicillin resistant Staphylococcus aureus infection; S80.869S Insect bite (nonvenomous), unspecified lower leg, sequela; W57.XXXS Bitten or stung by nonvenomous insect and other nonvenomous arthropods, sequela; L01.00 Impetigo, unspecified
CPT/HCPCS: 11042; 87070; 87075; 87077; 87186; 87205; 99213; G0463

== ENCOUNTER 2022-07-14 13:02 | Outpatient (RCR) | payer MEDICARE, SELFPAY ==
[2022-07-04 01:38] VITALS: BP 153/71; PULSE 71; RESP 16; TEMP 36.4
--- NOTE | 2022-07-14 13:05 | ART_ITS ---
Reason For Study: PAD Procedure A bilateral lower extremity continuous wave Doppler with analog waveform analysis,segmental pressures,and ankle brachial indexes without exercise. Left Segmental Pressures Left brachial= 134mmHg. Left posterior tibial artery = 160mmHg. Left dorsalis pedis artery = 155mmHg. Left digit = 136 mmHg. The left dorsalis pedis waveforms are triphasic. The left posterior tibial artery waveforms are triphasic. Right Segmental Pressures Right brachial= 126mmHg. Right posterior tibial artery = 162mmHg. Right dorsalis pedis artery = 175mmHg. Right digit = 120 mmHg. The right dorsalis pedis waveforms are triphasic. The right posterior tibial artery waveforms are triphasic. Indices The right ankle brachial index by the dorsalis pedis is 1.31. The right ankle brachial index by the posterior tibial artery is 1.21. The right digital-brachial index is .9. The left ankle brachial index by the posterior tibial artery is 1.19. The left ankle brachial index by the dorsalis pedis is 1.16. The left digital-brachial index is 1.01. VL/Lower Ext Art Exam w/o Exercis Interpretation Summary Triphasic Doppler waveforms are noted at ankle level bilaterally. Pulse-volume recordings appear satisfactory at all levels bilaterally. Resting ankle-brachial indices are norm al bilaterally. Digital-brachial indices are normal bilaterally. There is no evidence of significant arterial occlusive disease in the lower ext remities bilaterally. Ordering Physician: Wendy Hoover Performed By: Fredo Wies RVCarole
--- NOTE | 2022-07-14 13:05 | VDLE_ITS ---
Reason For Study: wound RIGHT LEFT CFV is compressible, spontaneous, phasic, CFV is compressible, spontaneous, phasic, competent and demonstrates normal competent, and demonstrates normal augmentation. augmentation. FV is compressible, spontaneous, phasic, FV is compressible, spontaneous, phasic, competent and demonstrates normal competent and demonstrates normal augmentation. augmentation. POP V is compressible, spontaneous, phasic, POP V is compressible, spontaneous, phasic, competent and demonstrates normal competent and demonstrates normal augmentation. augmentation. T/P Trunk is compressible. T/P Trunk is compressible. PTV is compressible. PTV is compressible. RT PerV is compressible. LT PerV is compressible. SFJ is competent and measures .89 cm. SFJ is competent and measures .94 cm. GSV proximal thigh measures .2 x .23 cm. GSV proximal thigh measures .36 x .36 cm. GSV at knee measures .22 x .23 cm. GSV at knee measures .24 x .23 cm. GSV above knee is competent. GSV INCOMPETENT throughout for greater than GSV below knee is INCOMPETENT for greater 0.5 seconds. than 0.5 seconds. SSV proximal calf is competent and SSV proximal calf is competent and measures .13 x .15 cm. measures .16 x .17 cm. Procedure This is a venous duplex using B-mode, color flow and spectral Doppler. Exam performed in department. The exam was diagnostic. VL/Venous Duplex US - Andres Extrem Interpretation Summary Deep veins of the lower extremities are bilaterally patent and compressible seg mentally. There is no evidence of deep vein thrombosis on either side. Valvular competence appears in tact within the proximal deep venous systems bilaterally. The great saphenous veins appear bila terally patent and compressible segmentally. Sapheno-femoral junctions are bilaterally competent . The right great saphenous vein appears competent above the knee. The right great saphenous vein appears incompetent below the knee. The left great saphenous vein appears segmentally incompetent. Small saphenous veins are patent and competent bilaterally. Ordering Physician: Wendy Hoover Performed By: Fredo Wise RVT
== END 2022-07-14 23:59 | disposition home or self-care (01) ==
LOC: WC 13:02
PROVIDERS: PCP Internal Medicine; Referring Provider Nurse Practitioner; Visit Provider Nurse Practitioner
DX: I73.9 Peripheral vascular disease, unspecified (principal); R60.0 Localized edema
CPT/HCPCS: 93923; 93970

== ENCOUNTER → 2022-10-19 | Outpatient (CLI) | payer MEDICARE, SELFPAY ==
--- NOTE | 2022-10-19 13:27 | CT_ITS ---
PROCEDURE: CT RIGHT KNEE WITHOUT CONTRAST REASON FOR EXAM: Female, 67 years old. Preoperative planning for the MakoPlasty Robotic knee surgery. Knee pain. TECHNIQUE: Transaxial CT of the hip, knee and ankle were obtained. Coronal and sagittal reconstruction images of the knee were provided. Individualized dose optimization techniques were used for this CT. COMPARISON: None. FINDINGS: Standard protocol for the preoperative planning for the MakoPl[employer] robotic knee surgery was performed. There is moderate arthrosis of the hip, marked tricompartmental arthrosis of the knee and mild arthrosis of the tibiotalar joint. CT/Extremity Lower without Contra IMPRESSION: Preoperative MakoPlasty Robotic knee surgical CT evaluation with findings as described above. Electronically Signed: Chris Rojas, at 14:11 EST ,
== END | disposition home or self-care (01) ==
PROVIDERS: PCP Internal Medicine; Visit Provider Orthopaedic Surgery
DX: M17.31 Unilateral post-traumatic osteoarthritis, right knee (principal)
CPT/HCPCS: 73700

== ENCOUNTER 2022-12-19 04:12 | Emergency (ER) | payer MEDICARE, SELFPAY ==
[2022-12-19 04:13] VITALS: BP 165/86; PULSE 80; RESP 14; TEMP 36; O2SAT 99; BMI 35.7
--- NOTE | 2022-12-19 04:44 | ED.VIS.FEGU ---
HPI HPI - Female History of Present Illness Chief Complaint: Complaint Detail of Chief Complaint: Urinary urgency. Mild dysuria. Informant: patient Pain Pain: Negative for Pelvic Pain Bleeding Issue: Negative for Vaginal bleeding Associated Symptoms Associated Symptoms: Positive for Dysuria and Urgency; Negative for Hematuria Narrative Narrative: 67-year-old female on 12/07/2022 about 12 days ago she had right knee replacement surgery done at [facility]. Has been doing well. Has been on hydrocodone for pain. States in the last several days has had some mild nausea and urinary urgency with dribbling. Denies any gross blood or cloudy urine. Says she cannot even remember the last time she had a urinary tract infection. She is currently on no antibiotics. She denies any fever. No significant back pain. Prior similar symptoms: No Recent Illness/Hospitalization: No PFSH PFSH Medical History Diabetes type 2, controlled Home Medications hydrocodone-acetaminophen 5-325mg 5mg-325mg 1 - 2 tab PO Q4H PRN PRN Pain ##12 06/22/15 [Rx Last Taken Unknown] penicillin V potassium 500 mg tablet 500 mg PO 4X/DAY ##40 06/22/15 [Rx Last Taken Unknown] Allergy/AdvReac Type Severity Reaction Status Date / Time No Known Allergies Allergy Verified 06/21/15 21:42 Social History Smoking Status: Never smoker ROS ROS ED ROS Narrative Urinary urgency. Dysuria. Review of Systems ROS Unobtainable: Denies due to encephalopathy Constitutional Constitutional ED: Denies chills or fever(s) Eyes Eyes: Denies blurry vision ENT ENT ED: Denies ear pain Cardiovascular Cardiovascular: Denies chest pain Respiratory/Chest Respiratory/Chest: Denies cough Gastrointestinal Gastrointestinal: Denies abdominal pain Genitourinary Genitourinary ED: Reports dysuria Musculoskeletal Musculoskeletal: Denies arthralgias or myalgias Integumentary Denies abscess Neurologic Neurologic: Denies headache(s) Psychiatric Psychiatric: Denies anxiety Endocrine Endocrinology: Denies heat intolerance Hematologic/Lymphatic Hematologic/Lymphatic: Denies easy bleeding Allergic/Immunologic Allergic/Immunologic ED: Denies mouth swelling or tongue swelling EXAM Physical Exam Narrative Exam Narrative: 67-year-old female no acute distress. Vital signs are stable afebrile. H EENT exam is unremarkable. Neck is nontender. Lungs are clear. Heart regular rhythm. Abdomen is soft, nontender, nondistended, normal bowel sounds without peritoneal signs. Right upper and right lower quadrants are unremarkable. No distention. No peritoneal signs. Moving all 4 extremities. 80 wrap on her right knee, recent knee replacement surgery. Back is nontender. No CVA tenderness. Neurologically she is awake and alert. Moving all 4 extremities. Const Vital Signs: 12/19/22 04:13 Temperature 96.8 F L Temperature Source Temporal Pulse Rate 80 Respiratory Rate 14 Blood Pressure 165/86 H Blood Pressure Mean 112 Pulse Ox 99 Oxygen Delivery Method Room Air Positive well nourished and well developed; Negative for cachectic, contractures or unkempt General Appearance ED: well developed and NAD; Negative for unkempt, cachectic, contractures or pallor Nutritional Appearance: Negative for cachectic HEENT Reports moist mucous membranes Negative for trauma or tenderness Eyes PERRL and EOMs intact bilaterally General Eye ED: Negative for pale conjunctiva or scleral icterus Neck no lymphadenopathy, supple and no JVD General: Negative for other Thyroid: Negative for tender Lymph Lymphatic: Negative for other Chest Wall inspection of chest normal and palpation of chest normal Chest: Negative for other Resp normal respiratory effort and clear to auscultation bilaterally Effort and Inspection: Negative for pain with movement Auscultation: Negative for rales, rhonchi or wheezes Cardio regular rate, regular rhythm, S1 normal heart sound, no murmurs and no JVD GI normal to inspection, nondistended, normoactive bowel sounds, soft to palpation, non-tender, non-distended and no masses Auscultation: normoactive bowel sounds Palpation: Negative for tender, guarding or rigid Back/Spine no CVA tenderness General Back: Negative for CVA tenderness Cervical Spine: Negative for cervical spine tenderness Thoracic Spine / Upper Back: Negative for thoracic spinal tenderness Lumbar Spine / Lower Back: Negative for lumbar spinal tenderness Sacrum: Negative for other Extremity normal to inspection; Negative for full ROM Extremity Narrative: Status post recent right knee surgery. Healing well. Neuro oriented x3 Sensorium / Orientation: alert, oriented to person, oriented to place and oriented to time; Negative for confused, lethargic or stuporous Motor Exam: strength 5/5 throughout Psych mental status grossly normal Appearance: Negative for unkempt Attitude: No agitated Speech: No other Mood & Affect: Negative for depressed, anxious or tearful Skin no rashes or lesions noted and no wounds General Skin Exam: Negative for jaundice or pallor Rashes: No rashes noted Trauma: Negative for other MDM MDM MDM Narrative Medical decision making narrative: 67-year-old female with dysuria and urgency. Suspect a UTI. Clinically she looks well. Urinalysis has been obtained and were awaiting the results. Otherwise exam benign. Repeat exam unchanged at 5:45 AM. Bladder scan was only 74 cc so does not appear to be urinary retention. Patient's been on Celebrex for the last several weeks I will check a CBC and a BMP to check her kidney function. Patient doing well at 6:30 AM. Exam unchanged. She and I went through all of her test. Urinalysis shows no signs of infection or cultures pending. Bladder scan was only 74 no signs of retention. And her kidney function is normal according to the blood work. She will be discharged home. Follow-up with her primary care physician. Lab Data Attestation: I reviewed the patient's lab results. Lab results narrative: Urinalysis shows no significant signs of infection. No nitrites. No white or red cells. Only 1+ bacteria. A culture will be sent. Bladder scan only showed 74 cc so this should not be urinary retention. CBC showed a white count 7.7. H&H of 10.9 and 34. I have no old labs available for comparison. Chemistries were unremarkable gap of 10 and normal BUN of 10 and creatinine 0.6. Glucose 171. Kidneys appear to be functioning well. Labs: Laboratory Results - last 24 hr 12/19/22 12/19/22 12/19/22 04:25 05:50 05:50 WBC 7.7 RBC 3.87 L Hgb 10.9 L Hct 34.0 L MCV 87.9 MCH 28.2 MCHC 32.1 RDW Std Deviation 45.7 H RDW Coeff of Alicia 14.3 Plt Count 498 H MPV 8.7 Immature Gran % (Auto) 0.700 Neut % (Auto) 62.0 Lymph % (Auto) 21.1 Powell % (Auto) 10.2 H Eos % (Auto) 5.2 H Baso % (Auto) 0.8 Absolute Neuts (auto) 4.8 Absolute Lymphs (auto) 1.62 Nucleated RBC % 0 Sodium 139 Potassium 3.5 Chloride 103 Carbon Dioxide 26.0 Anion Gap 10 BUN 10 Creatinine 0.66 Estim Creat Clear Calc 55.82 Est GFR (MDRD) Af Amer 115 Est GFR (MDRD) Non-Af 95 BUN/Creatinine Ratio 15.1 Glucose 171 H Calcium 8.8 Urine Color Yellow Urine Clarity Sl. Cloudy Urine pH 6.5 Ur Specific [place] 1.015 Urine Protein 15 H Urine Glucose (UA) Normal Urine Ketones Negative Urine Occult Blood 10 H Urine Nitrite Negative Urine Bilirubin Negative Urine Urobilinogen Normal Ur Leukocyte Esterase 25 H Urine RBC 0 SEEN Urine WBC 0-5 SEEN Ur Squamous Epith Cells 0 SEEN Urine Bacteria 1+ Urine Mucus 0 SEEN Discharge Plan Triage Chief Complaint: Complaint ED Provider: Ba Corbin Dx/Rx/DC Orders Clinical Impression: Dysuria Instructions: ED Dysuria, Uncertain Cause (Adult) Prescriptions: No Action hydrocodone-acetaminophen 1 TABLET tablet 1 - 2 tab PO Q4H PRN PRN (Reason: Pain) Qty: 12 0RF penicillin V potassium 500 MG tablet 500 mg PO 4X/DAY Qty: 40 0RF Primary Care Provider: Rachell Weaver Referrals: Rachell Weaver MD [Primary Care Provider] - As soon as possible Activity Restrictions/Additional Instructions: We sent a urine culture that is positive we will notify you and start you on an antibiotic. Your urinalysis looked good. Your kidney function look good on the blood work. And the bladder scan showed no signs of urinary retention. Follow-up with your doctor for further evaluation. Disposition Disposition: Home, Self Care
[2022-12-19 04:56] LABS: Color, Urine Yellow (Yellow); Glucose, Dipstick Normal (Normal); Ketone-Dipstick Negative (Negative); Leukocyte Esterase-Dipstick 25 /ul (Negative); Mucous, Urine 0 SEEN /hpf (<or=2+); Nitrite-Dipstick Negative (Negative); Occult Blood-Urine 10 /ul (Negative); Protein-Dipstick 15 mg/dl (Negative); Red Blood Cells-Urine 0 SEEN /hpf (0-5); Specific Gravity, Urine 1.015 (1.002-1.030); Squamous Epithelial Cells - UA 0 SEEN /hpf (5-10); Urine Bilirubin Dipstick Negative (Negative); Urine Clarity Sl. Cloudy (Clear); Urine Urobilinogen Normal (Normal); Urine pH 6.5 (5.0 - 8.0)
[2022-12-19 05:04] LABS: Bacteria 1+ /hpf (None Seen); White Blood Cells 0-5 SEEN /hpf (0-5)
[2022-12-19 05:56] LABS: Absolute Lymphocyte Count 1.62 X10^3/uL (0.83-4.51); Absolute Neutrophil Count 4.8 X10^3/uL (2.0-7.7); Basophil# 0.06 X10^3/uL; Basophil% 0.8 % (0-1); Eosinophils% 5.2 % (0-5); Hemoglobin 10.9 g/dL (12.0-15.0); Lymphocyte # 1.62 X10^3/ul (0.83-4.51); Lymphocyte % 21.1 % (19-41); Mean Corp Hgb Conc 32.1 g/dL (32-36); Mean Corpuscular Hgb 28.2 pg (27.0-32.0); Mean Corpuscular Volume 87.9 fL (81-99); Mean Platelet Vol. 8.7 fl (6.2-12.0); Monocyte# 0.78 X10^3/uL; Monocyte% 10.2 % (0-10); NRBC Flagged by Analyzer 0 % (0-5); Neutrophil # 4.76 X10^3/uL (2.7-7.7); Platelet Count 498 K/mm3 (150-450); RBC Distribution Width CV 14.3 % (11.6-14.6); RBC Distribution Width SD 45.7 fl (35.1-43.9); Red Blood Count 3.87 M/mm3 (4.2-5.4); White Blood Count 7.7 K/mm3 (4.4-11.0)
[2022-12-19 06:10] LABS: Anion Gap 10 (5-15); BUN 10 mg/dL (7-18); BUN/Creat Ratio 15.1 RATIO (10-20); Calcium,Total 8.8 mg/dL (8.5-10.1); Chloride 103 mmol/L (98-107); Creatinine, Serum 0.66 mg/dL (0.55-1.02); EST Glomerular Filtration Rate 95 mL/min (>60); Est Glom Filt Rate - Afr Amer 115 mL/min (>60); Estimated Creatinine Clearance 55.82 ml/min; Glucose 171 mg/dL (74-106); Potassium 3.5 mmol/L (3.5-5.1); Sodium Level 139 mmol/L (136-145)
[2022-12-19 06:36] VITALS: O2SAT 99
== END 2022-12-19 06:37 | disposition home or self-care (01) ==
PROVIDERS: Emergency Provider Emergency Medicine; PCP Internal Medicine; Visit Provider Emergency Medicine
DX: R30.0 Dysuria (principal)
CPT/HCPCS: 80048; 81001; 85025; 87086; 87088; 99283; A4216

== ENCOUNTER 2023-04-14 07:57 | Outpatient (RCR) | payer MEDICARE, SELFPAY ==
[2023-04-14 08:12] VITALS: BP 116/64; PULSE 70; RESP 18; TEMP 35.9
--- NOTE | 2023-04-14 09:22 | PCM.WC.PN ---
History of Present Illness Date of Service: 04/14/23 Chief Complaint: very small 0.3cmx0.3cm macular lesion flaky in nature on her L lat knee. History of Wound: 67-year-old white female with history of impetigo. Her orthopedic surgeon insists that she has this small dry red flaky lesion on her left lateral knee checked out before he can do schedule her for surgery. Denies itching states has not really tried anything on it. Progress of Wound: As above 0.3 x 0.3 cm macular lesion flaky erythemic. Well demarcated. We will try clobetasol cream to the area twice a day follow her up in like a month and see if it worked if its not improving it may be fungal in nature we will try and see if the steroid cream dries it up. Subjective Subjective Patient approves of the plan Objective Data Objective Data As stated above there is no other rash on her at a small macular flaky red lesion on her left lateral knee Vital Signs: Vital Signs Temp Pulse Resp BP 96.7 F L 70 18 116/64 04/14/23 08:12 04/14/23 08:12 04/14/23 08:12 04/14/23 08:12 Physical Exam Const oriented x3 General Appearance: cooperative Exam Limitations: no limitations HEENT normocephalic Face and Sinus: normal facial exam Eyes PERRL Neck General: normal visual inspection Resp normal respiratory effort Effort and Inspection: able to speak in complete sentences Auscultation: clear to auscultation bilaterally Cardio regular rate and regular rhythm Palpation: normal PMI Rate: regular rate Rhythm: regular rhythm GI Palpation: soft and no hepatosplenomegaly Extremity General Extremity: normal exam except as noted Skin Skin Narrative: Small 0.3 x 0.3 cm erythematous macular flaky lesion on her left lateral knee Neuro oriented x3 Psych Appearance: grossly normal Speech: normal speech Thought Content: normal thought content Judgement: judgement good Debridement Note Debridement Note No debridement was completed: No debridement was completed today Post-Debridement Measurements and Additional Note: Post-Debridement Measurements/Treatment CATALINO - Nurse 1 - General Ulcer Assessment Start: 04/14/23 08:10 Freq: Status: Active Protocol: RAS Activity Type Activity Date Activity User E-sign Co-sign Detail Recorded Client Recorded Date Recorded By Document 04/14/23 08:12 DL [id number] 04/14/23 08:23 DL 04/14/23 08:12 WC - Today's Visit Information Type of service Initial Visit Arrival Mode Ambulatory Transfer Assistance None Patient Identification Verified (Name & Yes ) Patient Requires Transmission-Based No Precautions Height and Weight Height 5 ft 8 in Vital Signs Temperature (97.8 F-99.1 F) 96.7 F L Temperature Source Temporal Pulse Rate (60-100) 70 Pulse Location Monitor Respiratory Rate (12-18) 18 Respiratory rate source Observation Blood Pressure (90/60-120/80) 116/64 Blood Pressure Mean (mm Hg) 81 Source Monitor Pain Scale: 0-10 Numeric Is Patient Pain Free? Yes WC - Nurse 1 - General Ulcer Measurement Start: 04/14/23 08:10 Freq: Status: Active Protocol: Activity Type Activity Date Activity User E-sign Co-sign Detail Recorded Client Recorded Date Recorded By Document 04/14/23 08:12 DL [id number] 04/14/23 08:23 DL 04/14/23 08:12 Wound Center Nurse 1 #3 L Knee -Current Size (cm) - Length 0.1 -Current Size (cm) - Width 0.1 -Current Size (cm) - Depth 0.1 -Total Square Cm 0.01 -Photo Taken Yes -Classification - Thickness Unclassifiable (Eschar Covered ) -Exudate Amt None Present -Wound Margin Flat & Intact -Granulation Amt Small (1-33%) -Granulation Quality [place] -Necrosis Amt None Present (0 %) -Structure Exposed N/A -Texture (Neema-wound Skin Appearance) Rash -Moisture (Neema-wound Skin Appearance) No Abnormality -Color (Neema-wound Skin Appearance) No Abnormality -Temperature (Neema-wound Skin No Abnormality Appearance) (Pt Warm) -Tenderness on Palpation (Neema-wound No Skin Appearance) -Ulcer Cleansing Soap and Water -Foul Odor after Cleansing No -Wound Comment(s) No Open area. Right Calf (cm) 37 Right Ankle (cm) 21.4 Left Calf (cm) 37.5 Left Ankle (cm) 21.5 WC - Nurse 2 - General Ulcer CM Notes Start: 04/14/23 08:10 Freq: Status: Active Protocol: Activity Type Activity Date Activity User E-sign Co-sign Detail Recorded Client Recorded Date Recorded By Document 04/14/23 08:44 MW [id number] 04/14/23 08:51 MW 04/14/23 08:44 Wound Center Nurse 2 #3 L Knee -Time 08:45 -Correct Patient Yes -Correct Side, Site, Position Yes -Correct Procedure Yes -Procedure Performed No -Tunneling No -Undermining/Tunneling No -Circular Undermining No -Wound/Ulcer Outcome Not Healed -Ulcer Cleansing Rinsed/ Irrigated with Saline -Foul Odor after Cleansing No -Bioengineered Tissue No -Bleeding Controlled with NA -Treatment Response Procedure Tolerated Well -Offloading No Pain Scale: 0-10 Numeric Is Patient Pain Free? Yes WC - Nurse 3 - General Ulcer D/C NN Start: 04/14/23 08:10 Freq: Status: Active Protocol: Activity Type Activity Date Activity User E-sign Co-sign Detail Recorded Client Recorded Date Recorded By Document 04/14/23 08:52 MW [id number] 04/14/23 08:52 MW 04/14/23 08:52 Wound Care Center Nurse 3 #3 L Knee -Ulcer Cleansing Not Cleansed Treatment Response Procedure Tolerated Well Pain Scale: 0-10 Numeric Is Patient Pain Free? Yes Teaching: Wound Center Skin Care -Person Taught Patient -Teaching Method Discussion -Response to teaching Verbalize understanding WC - Visit Discharge Discharge Condition Stable Ambulatory Status Ambulatory Transportation Private Auto Accompanied by self Medication Reconcilliation completed & No provided to patient/care provider Clinical Summary of Care Provided Yes Assessment/Plan Assessment/Plan (1) Eczema: CODE(S): L30.9 - Dermatitis, unspecified QUALIFIERS: Eczema type: other Qualified Code(s): L30.8 - Other specified dermatitis (2) Dermatitis: CODE(S): L30.9 - Dermatitis, unspecified PLAN: Plan Use the clobetasol cream 0.5 to the lesion 2 times a day for 4 weeks follow-up in 1 month. If worsens and 2 to 3 weeks report back early.
== END 2023-05-03 23:59 | disposition home or self-care (01) ==
LOC: WC 07:57
PROVIDERS: PCP Internal Medicine; Referring Provider Orthopaedic Surgery; Visit Provider Nurse Practitioner
DX: L30.8 Other specified dermatitis (principal)
CPT/HCPCS: 99213; G0463

== ENCOUNTER 2023-05-19 08:00 | Outpatient (RCR) | payer MEDICARE, SELFPAY ==
[2023-05-04 00:10] VITALS: BP 116/64; PULSE 70; RESP 18; TEMP 35.9
[2023-05-12 08:08] VITALS: BP 109/90; PULSE 70; RESP 20; TEMP 35.8
--- NOTE | 2023-05-12 08:25 | LES_PTH ---
PATIENT: NAOMIE GOMEZ LOC: U#:[id number] AGE/SX: 67/F ROOM: RE05/19/[address]: AB Leigh : 1955 BED: DIS: 05/19/2023 SPEC #: [id number] RECD: 05/12/23 09:51 STATUS: DAJA RAKESH #: [id number] CHANG: 05/12/23 08:[address]: Wendy Hoover NP DEPT: SURGICAL PATHOLOGY RECD BY: Luis Bourne ENTERED: 05/12/23 11:15 SP TYPE: Lesion OTHR DR: MD Dr. Jhonny Abreu MD Tissues: Skin of knee, NOS Procedures: Surgery Specimen Level IV HEADER OPERATION: Left knee biopsy PRE-OP DIAGNOSIS: Lesion left knee TISSUE SUBMITTED: Left knee MICROSCOPIC DIAGNOSIS Left knee lesion, punch biopsy: Consistent with verrucous keratosis. Negative for atypia or malignancy. See comment. FRANNY:devika 05/13/2023 COMMENT The specimen predominantly consists of adipose tissue. Case has been reviewed in consultation with Dr. Stockton who concurs with the above diagnosis. IDC:AM MICROSCOPIC DESCRIPTION Slides are reviewed. GROSS DESCRIPTION Received in fixative is one container labeled with the patient's name and designated left knee. The specimen consists of multiple irregular fragments of bowens-light yellow adipose tissue that in aggregate measure 1.5 x 1.5 x 0.3 cm. A piece of skin is also present measuring 0.4 cm in diameter. The specimen is totally submitted in one cassette. / FRANNY:devika 05/12/2023 TC:5 CPT: 21645
--- NOTE | 2023-05-12 09:25 | PN.PCM_ITS ---
History of Present Illness Date of Service: 05/12/23 Chief Complaint: very small 0.3cmx0.3cm macular lesion flaky in nature on her L lat knee. History of Wound: 67-year-old white female with history of impetigo. Her orthopedic surgeon insists that she has this small dry red flaky lesion on her left lateral knee checked out before he can do schedule her for surgery. Denies itching states has not really tried anything on it. Progress of Wound: So after using a month of steroids on the flat macular area lesion it does not seem to be working and slightly a little bit bigger with the tail. Today we will biopsy and get back with her. Subjective Subjective Patient is happy that we can a biopsy and figure out what it is Objective Data Objective Data Macular irregular shaped lesion on her left just below the knee area. Biopsied with a number 5 mm biopsy. Will send that off to pathology sutured with 2 real tures Prolene follow-up in 1 week. Will discuss then her outcomes. Vital Signs: Vital Signs Temp Pulse Resp BP 96.5 F L 70 20 H 109/90 H 05/12/23 08:08 05/12/23 08:08 05/12/23 08:08 05/12/23 08:08 Lab / Micro Data Attestation: I reviewed the patient's lab results. Physical Exam Const oriented x3 General Appearance: cooperative Exam Limitations: no limitations HEENT normocephalic Face and Sinus: normal facial exam Eyes PERRL Neck General: normal visual inspection Resp normal respiratory effort Effort and Inspection: able to speak in complete sentences Auscultation: clear to auscultation bilaterally Cardio regular rate and regular rhythm Palpation: normal PMI Rate: regular rate Rhythm: regular rhythm GI Palpation: soft and no hepatosplenomegaly Extremity General Extremity: normal exam except as noted Skin Skin Narrative: Small 0.3 x 0.3 cm erythematous macular flaky lesion on her left lateral knee Neuro oriented x3 Psych Appearance: grossly normal Speech: normal speech Thought Content: normal thought content Judgement: judgement good Debridement Note Debridement Note Operative Diagnosis: Wash left knee area with Hibiclens then povidone iodine anesthetized with 1 No debridement was completed: No debridement was completed today Post-Debridement Measurements and Additional Note: Post-Debridement Measurements/Treatment WC - Nurse 1 - General Ulcer Assessment Start: 05/12/23 08:07 Freq: Status: Active Protocol: RAS Activity Type Activity Date Activity User E-sign Co-sign Detail Recorded Client Recorded Date Recorded By Document 05/12/23 08:08 JARRETT [id number] 05/12/23 08:13 DL 05/12/23 08:08 - Today's Visit Information Type of service Follow-up Visit (Physician/OFFICE INSPECTOR ) Arrival Mode Ambulatory Transfer Assistance None Patient Identification Verified (Name & Yes ) Patient Requires Transmission-Based No Precautions Vital Signs Temperature (97.8 F-99.1 F) 96.5 F L Temperature Source Temporal Pulse Rate (60-100) 70 Pulse Location Monitor Respiratory Rate (12-18) 20 H Respiratory rate source Observation Blood Pressure (90/60-120/80) 109/90 H Blood Pressure Mean (mm Hg) 96 Source Monitor History Since Last Visit- (Skip if this is Patient's initial visit) Have you changed medications since your No last visit? Any new allergies or adverse reactions No Had a fall/change in ADL's that may No increase risk of falls Signs or symptoms of abuse and/or No neglect since last visit Have you been in the hospital since your No last visit? Has dressing in place as prescribed No Has compression in place as prescribed Yes Has offloadiing in place as prescribed N/A Experienced any changes in pain level or No management Pain Scale: 0-10 Numeric Is Patient Pain Free? Yes - Nurse 1 - General Ulcer Measurement Start: 05/12/23 08:07 Freq: Status: Active Protocol: Activity Type Activity Date Activity User E-sign Co-sign Detail Recorded Client Recorded Date Recorded By Document 05/12/23 08:08 JARRETT [id number] 05/12/23 08:13 DL 05/12/23 08:08 Wound Center Nurse 1 #3 L Knee -Current Size (cm) - Length 0.1 -Current Size (cm) - Width 0.1 -Current Size (cm) - Depth 0.1 -Total Square Cm 0.01 -Exudate Amt None Present -Wound Margin Flat & Intact -Granulation Amt None Present (0 %) -Necrosis Amt None Present (0 %) -Structure Exposed N/A -Texture (Neema-wound Skin Appearance) Scarring -Moisture (Neema-wound Skin Appearance) No Abnormality -Color (Neema-wound Skin Appearance) No Abnormality -Temperature (Neema-wound Skin No Abnormality Appearance) (Pt Warm) -Tenderness on Palpation (Neema-wound No Skin Appearance) -Ulcer Cleansing Rinsed/ Irrigated with Saline -Foul Odor after Cleansing No WC - Nurse 2 - General Ulcer CM Notes Start: 05/12/23 08:07 Freq: Status: Active Protocol: Activity Type Activity Date Activity User E-sign Co-sign Detail Recorded Client Recorded Date Recorded By Document 05/12/23 08:36 MW [id number] 05/12/23 08:38 MW 05/12/23 08:36 Wound Center Nurse 2 -Time 08:37 -Correct Patient Yes -Correct Side, Site, Position Yes -Correct Procedure Yes -Procedure Performed No -Post Debridement (cm) - Length 0 -Post Debridement (cm) - Width 0 -Post Debridement (cm) - Depth 0 -Total Square (Post) (cm) 0 -Wound/Ulcer Outcome Not Healed -I&D / Paring / Biopsy Punch bx skin ( includes simple close, if done ), single lesion Pain Scale: 0-10 Numeric Is Patient Pain Free? Yes WC - Nurse 3 - General Ulcer D/C NN Start: 05/12/23 08:07 Freq: Status: Active Protocol: Activity Type Activity Date Activity User E-sign Co-sign Detail Recorded Client Recorded Date Recorded By Document 05/12/23 08:43 DL [id number] 05/12/23 08:44 DL 05/12/23 08:43 Wound Care Center Nurse 3 #3 L Knee -Ulcer Cleansing Rinsed/ Irrigated with Saline -Foul Odor after Cleansing No -Primary Dressing Covered/Secured with Dry Gauze, Secured with Tape Treatment Response Procedure Tolerated Well Pain Scale: 0-10 Numeric Is Patient Pain Free? Yes WC - Visit Discharge Discharge Condition Stable Ambulatory Status Ambulatory,Cane Transportation Private Auto Assessment/Plan Assessment/Plan (1) Skin lesion of left leg: CODE(S): L98.9 - Disorder of the skin and subcutaneous tissue, unspecified PLAN: Wash area with soap and water may leave open to air cover what ever patient prefers Continue wearing compression stockings. Follow-up in 1 week Will call with pathology report on the biopsy (2) Dermatitis: CODE(S): L30.9 - Dermatitis, unspecified (3) Diabetes type 2, controlled: CODE(S): E11.9 - Type 2 diabetes mellitus without complications QUALIFIERS: Diabetes mellitus terminal makeup operator insulin use: without terminal makeup operator use Diabetes mellitus complication status: with hyperglycemia Qualified Code(s): E11.65 - Type 2 diabetes mellitus with hyperglycemia
[2023-05-19 08:14] VITALS: BP 127/61; PULSE 75; RESP 16; TEMP 35.8
--- NOTE | 2023-05-19 10:26 | PCM.WC.PN ---
History of Present Illness Date of Service: 05/19/23 Chief Complaint: very small 0.3cmx0.3cm macular lesion flaky in nature on her L lat knee. History of Wound: 67-year-old white female with history of impetigo. Her orthopedic surgeon insists that she has this small dry red flaky lesion on her left lateral knee checked out before he can do schedule her for surgery. Denies itching states has not really tried anything on it. Progress of Wound: Biopsy came back that it was a wart. Removed 2 sutures and patient will be discharged from the wound center Patient can have her surgery in October and that there is no worries of any infection. Subjective Subjective Patient was happy with outcomes Objective Data Objective Data Biopsy was negative and patient just has a wart patient will be discharged from the wound center and follow-up as needed Vital Signs: Vital Signs Temp Pulse Resp BP O2 Del Method 96.4 F L 75 16 127/61 H Room Air 05/19/23 08:14 05/19/23 08:14 05/19/23 08:14 05/19/23 08:14 05/19/23 08:14 Oxygen Delivery Method Room Air Lab / Micro Data Attestation: I reviewed the patient's lab results. Physical Exam Const oriented x3 General Appearance: cooperative Exam Limitations: no limitations HEENT normocephalic Face and Sinus: normal facial exam Eyes PERRL Neck General: normal visual inspection Resp normal respiratory effort Effort and Inspection: able to speak in complete sentences Auscultation: clear to auscultation bilaterally Cardio regular rate and regular rhythm Palpation: normal PMI Rate: regular rate Rhythm: regular rhythm GI Palpation: soft and no hepatosplenomegaly Extremity General Extremity: normal exam except as noted Skin Skin Narrative: Small 0.3 x 0.3 cm erythematous macular flaky lesion on her left lateral knee Neuro oriented x3 Psych Appearance: grossly normal Speech: normal speech Thought Content: normal thought content Judgement: judgement good Debridement Note Debridement Note No debridement was completed: No debridement was completed today Post-Debridement Measurements and Additional Note: Post-Debridement Measurements/Treatment CATALINO - Nurse 1 - General Ulcer Assessment Start: 05/12/23 08:07 Freq: Status: Active Protocol: RAS Activity Type Activity Date Activity User E-sign Co-sign Detail Recorded Client Recorded Date Recorded By Document 05/12/23 08:08 DL [id number] 05/12/23 08:13 DL Document 05/19/23 08:14 BMF [id number] 05/19/23 08:15 BMF 05/12/23 05/19/23 08:08 08:14 - Today's Visit Information Type of service Follow-up Visit Follow-up Visit (Physician/PROCESS CONTROL OPERATOR (Physician/PROCESS CONTROL OPERATOR ) ) Arrival Mode Ambulatory Ambulatory Transfer Assistance None None Patient Identification Verified (Name & Yes Yes ) Patient Requires Transmission-Based No No Precautions Vital Signs Temperature (97.8 F-99.1 F) 96.5 F L 96.4 F L Temperature Source Temporal Temporal Pulse Rate (60-100) 70 75 Pulse Location Monitor Monitor Respiratory Rate (12-18) 20 H 16 Respiratory rate source Observation Observation Oxygen Delivery Method Room Air Blood Pressure (90/60-120/80) 109/90 H 127/61 H Blood Pressure Mean (mm Hg) 96 83 Source Monitor Monitor Position Sitting Blood Pressure Location Left Arm History Since Last Visit- (Skip if this is Patient's initial visit) Have you changed medications since your No No last visit? Any new allergies or adverse reactions No No Had a fall/change in ADL's that may No No increase risk of falls Signs or symptoms of abuse and/or No No neglect since last visit Have you been in the hospital since your No No last visit? Has dressing in place as prescribed No Has compression in place as prescribed Yes N/A Has offloadiing in place as prescribed N/A N/A Experienced any changes in pain level or No No management Left Footwear Regular Shoe Right Footwear Regular Shoe Pain Scale: 0-10 Numeric Is Patient Pain Free? Yes Yes - Nurse 1 - General Ulcer Measurement Start: 05/12/23 08:07 Freq: Status: Active Protocol: Activity Type Activity Date Activity User E-sign Co-sign Detail Recorded Client Recorded Date Recorded By Document 05/12/23 08:08 DL [id number] 05/12/23 08:13 DL Document 05/19/23 08:14 BM [id number] 05/19/23 08:15 BMF 05/12/23 05/19/23 08:08 08:14 Wound Center Nurse 1 #3 L Knee -Combined with other wound No -Current Size (cm) - Length 0.1 0.1 -Current Size (cm) - Width 0.1 0.1 -Current Size (cm) - Depth 0.1 0.1 -Total Square Cm 0.01 0.01 -Date of Last Picture (Recall this 05/19/23 field) -Photo Taken Yes -Exudate Amt None Present -Wound Margin Flat & Intact -Granulation Amt None Present (0 %) -Necrosis Amt None Present (0 %) -Structure Exposed N/A -Texture (Neema-wound Skin Appearance) Scarring -Moisture (Neema-wound Skin Appearance) No Abnormality -Color (Neema-wound Skin Appearance) No Abnormality Ecchymosis -Temperature (Neema-wound Skin No Abnormality No Abnormality Appearance) (Pt Warm) (Pt Warm) -Tenderness on Palpation (Neema-wound No No Skin Appearance) -Ulcer Cleansing Rinsed/ Rinsed/ Irrigated with Irrigated with Saline Saline -Foul Odor after Cleansing No -Wound Comment(s) 2 sutures intact WC - Nurse 2 - General Ulcer CM Notes Start: 05/12/23 08:07 Freq: Status: Active Protocol: Activity Type Activity Date Activity User E-sign Co-sign Detail Recorded Client Recorded Date Recorded By Document 05/12/23 08:36 MW [id number] 05/12/23 08:38 MW Document 05/19/23 08:25 MW [id number] 05/19/23 08:27 MW 05/12/23 05/19/23 08:36 08:25 Wound Center Nurse 2 #3 L Knee -Time 08:37 08:26 -Correct Patient Yes Yes -Correct Side, Site, Position Yes Yes -Correct Procedure Yes Yes -Procedure Performed No No -Post Debridement (cm) - Length 0 0 -Post Debridement (cm) - Width 0 0 -Post Debridement (cm) - Depth 0 0 -Total Square (Post) (cm) 0 0 -Wound/Ulcer Outcome Not Healed Healed- Epithelialized -I&D / Paring / Biopsy Punch bx skin ( includes simple close, if done ), single lesion Pain Scale: 0-10 Numeric Is Patient Pain Free? Yes Yes WC - Nurse 3 - General Ulcer D/C NN Start: 05/12/23 08:07 Freq: Status: Active Protocol: Activity Type Activity Date Activity User E-sign Co-sign Detail Recorded Client Recorded Date Recorded By Document 05/12/23 08:43 DL [id number] 05/12/23 08:44 DL Document 05/19/23 08:27 MW [id number] 05/19/23 08:28 MW 05/12/23 05/19/23 08:43 08:27 Wound Care Center Nurse 3 #3 L Knee -Ulcer Cleansing Rinsed/ Irrigated with Saline -Foul Odor after Cleansing No -Primary Dressing Covered/Secured with Dry Gauze, Secured with Tape Treatment Response Procedure Tolerated Well Pain Scale: 0-10 Numeric Is Patient Pain Free? Yes Yes Teaching: Wound Center Discharge Instructions -Person Taught Patient -Teaching Method Discussion -Response to teaching Verbalize understanding WC - Visit Discharge Discharge Condition Stable Stable Ambulatory Status Ambulatory,Cane Ambulatory Transportation Private Auto Private Auto Accompanied by self Medication Reconcilliation completed & No provided to patient/care provider Clinical Summary of Care Provided Yes Assessment/Plan Assessment/Plan (1) Skin lesion of left leg: CODE(S): L98.9 - Disorder of the skin and subcutaneous tissue, unspecified PLAN: Discharge from the wound center follow-up as needed (2) Dermatitis: CODE(S): L30.9 - Dermatitis, unspecified (3) Diabetes type 2, controlled: CODE(S): E11.9 - Type 2 diabetes mellitus without complications QUALIFIERS: Diabetes mellitus jail insulin use: without supervisor assembly room use Diabetes mellitus complication status: with hyperglycemia Qualified Code(s): E11.65 - Type 2 diabetes mellitus with hyperglycemia (4) Verruca: CODE(S): B07.9 - Viral wart, unspecified
== END 2023-05-19 14:28 | disposition home or self-care (01) ==
LOC: WC 08:00
PROVIDERS: PCP Internal Medicine; Referring Provider Orthopaedic Surgery; Visit Provider Nurse Practitioner
DX: L30.8 Other specified dermatitis (principal); E11.65 Type 2 diabetes mellitus with hyperglycemia; L98.9 Disorder of the skin and subcutaneous tissue, unspecified; B07.9 Viral wart, unspecified
CPT/HCPCS: 11104; 88305; 99213; G0463

== ENCOUNTER → 2023-08-06 | Outpatient (CLI) | payer MEDICARE, SELFPAY ==
--- NOTE | 2023-08-06 07:22 | CT_ITS ---
EXAM: CT LEFT LOWER EXTREMITY WITHOUT INTRAVENOUS CONTRAST CLINICAL INDICATION: KNEE PAIN TECHNIQUE: Helically acquired images were obtained of the left lower extremity without intravenous contrast. 2-D reformats were performed by the technologist. This CT exam was performed using one or more of the following dose reduction techniques: automated exposure control, adjustment of the mA and/or kV according to patient size, and/or use of iterative reconstruction technique. COMPARISON: No relevant prior studies available. FINDINGS: BONES/JOINTS: Multiplanar CT imaging of the left hip, left knee and left ankle. Marked narrowing of the medial knee joint compartment. Extensive subchondral cyst formation and bony hypertrophy of the knee. No knee joint effusion. Mild bony spurring along the left greater trochanter. No significant degenerative change of the left hip or ankle. SOFT TISSUES: Normal. No soft tissue swelling or gas. No radiopaque foreign body. CT/Extremity Lower without Contra IMPRESSION: Advanced osteoarthritis of the left knee. Electronically Signed: Chava Resendiz MD at 16:21 EDT ,
== END | disposition home or self-care (01) ==
LOC: CT 07:17
PROVIDERS: PCP Internal Medicine; Referring Provider Orthopaedic Surgery; Visit Provider Orthopaedic Surgery
DX: M17.12 Unilateral primary osteoarthritis, left knee (principal); G89.29 Other chronic pain
CPT/HCPCS: 73700